=== PATIENT | female | born 1950 | race Caucasian/White ===

== ENCOUNTER 2017-04-26 18:55 | Inpatient (IN) | payer MEDICARE, OTHER ==
[~2017-04-26 18:55] MED LIST: DEPA500T3 PO; DIPH50 PO; DIVA250T PO; ESCI20TA PO; LEVO.15 PO; LORA-474 PO; RISP1 PO; TOLT4 PO; ZOLP10TA3 PO
[2017-04-26 19:21] VITALS: BP 120/95; PULSE 105; RESP 20; TEMP 98.9; O2SAT 96
[2017-04-26 21:52] LABS: AUTOMATED NEUTROPHIL # 9.9 TH/MM3 (1.8-7.7); BASOPHIL # 0.1 TH/MM3 (0-0.2); BASOPHIL % 0.6 % (0.0-2.0); EOSINOPHIL % 0.3 % (0.0-4.0); HEMATOCRIT 39.8 % (35.0-46.0); HEMOGLOBIN 13.1 GM/DL (11.6-15.3); LYMPH % 12.8 % (9.0-44.0); LYMPHOCYTE # 1.6 TH/MM3 (1.0-4.8); MEAN CELL VOLUME 87.1 FL (80.0-100.0); MEAN CORPUSCULAR HEMOGLOBIN 28.7 PG (27.0-34.0); MEAN CORPUSCULAR HGB CONC 32.9 % (32.0-36.0); MEAN PLATELET VOLUME 8.7 FL (7.0-11.0); MONOCYTE # 0.7 TH/MM3 (0-0.9); NEUT % 80.3 % (16.0-70.0); PLATELET COUNT 200 TH/MM3 (150-450); RED BLOOD COUNT 4.56 MIL/MM3 (4.00-5.30); RED CELL DISTRIBUTION WIDTH 14.8 % (11.6-17.2); WHITE BLOOD COUNT 12.3 TH/MM3 (4.0-11.0)
[2017-04-26 22:13] LABS: ALBUMIN 3.7 GM/DL (3.4-5.0); AST (GOT) 17 U/L (15-37); BICARBONATE 22.6 MEQ/L (21.0-32.0); BLOOD UREA NITROGEN 15 MG/DL (7-18); CALCIUM 9.4 MG/DL (8.5-10.1); CHLORIDE 104 MEQ/L (98-107); GLOMERULAR FILTRATION RATE 63 ML/MIN (>89); GLUCOSE,RANDOM 109 MG/DL (74-106); SODIUM (NA) 136 MEQ/L (136-145)
[2017-04-26 22:15] LABS: ALT (GPT) 16 U/L (10-53)
[2017-04-26 22:16] LABS: ALKALINE PHOSPHATASE 76 U/L (45-117); TOTAL BILIRUBIN ADULT 0.4 MG/DL (0.2-1.0); TOTAL PROTEIN 6.9 GM/DL (6.4-8.2)
[2017-04-26] MEDS ORDERED: OLANZapine IM 10 MG VIAL IM ONE (22:30)
[2017-04-26] MEDS ORDERED: SERO200T PO (22:31)
[2017-04-26] MEDS ORDERED: MECL12.574 PO (22:31)
[2017-04-26] MEDS ORDERED: TRAZ100T10 PO (22:31)
[2017-04-26] MEDS ORDERED: OXYC1TAB36 PO (22:31)
[2017-04-26] MEDS ORDERED: ZOLP10TA3 PO (22:31)
[2017-04-26] MEDS ORDERED: CLON1TAB PO (22:31)
[2017-04-26] MEDS ORDERED: ESCI20TA PO (22:31)
[2017-04-26] MEDS ORDERED: ZALE10CA PO (22:31)
[2017-04-26] MEDS ORDERED: ASPI81CH7 CHEW (22:31)
[2017-04-26] MEDS ORDERED: DEPA500T3 PO (22:31)
[2017-04-26] MEDS ORDERED: VITA1000 PO (22:31)
[2017-04-26] MEDS ORDERED: MAGN250T11 PO (22:31)
[2017-04-26] MEDS ORDERED: IBUP-1133 (22:33)
[2017-04-26] MEDS ORDERED: MELA5 PO (22:33)
--- NOTE | 2017-04-26 22:42 | PD ---
HPI Chief Complaint: Psychiatric Symptoms Time Seen by Provider: 22:31 Travel History International Travel<30 days: No Contact w/Intl Traveler<30days: No Traveled to known affect area: No History of Present Illness HPI 66-year-old white female presents emergency department accompanied by her son for psychological evaluation. The patient has history of paranoid schizophrenia. She has not been compliant with her medications. She has not been sleeping. Her 's anniversary of his was back in November. The patient has been decompensating over the last several days. She is becoming more paranoid and having auditory hallucinations. Patient is having conversations with people who were not there. The son states that he is not comfortable staying at home with her. The patient appears acutely psychotic. She does not render any meaningful history. PFSH Past Medical History Medical History: Unable to Obtain Bipolar Disorder: Yes Depression: Yes Cancer: Yes (double mesectomy) Cardiovascular Problems: Yes (Low Blood Pressure ) Diabetes: No Diminished Hearing: No Genitourinary: No Headaches: Yes (Advil and Excederin ) Neurologic: Yes (THIROID PROBLEMS) Psychiatric: Yes Reproductive: No Respiratory: No Seizures: Yes (two in past over 25 years ago when on Thorazine ) Tetanus Vaccination: Unknown ?: Not Tubal Ligation: Yes Past Surgical History Surgical History: Unable to Obtain Social History Alcohol Use: No Tobacco Use: Yes (pack a cig a day ) Substance Use: No Allergies-Medications (Allergen,Severity, Reaction): Coded Allergies: chlorpromazine (Unverified Allergy, Severe, Seizures, 04/26/17) doxycycline (Unverified Allergy, Severe, Seizures, 04/26/17) minocycline (Unverified Allergy, Severe, Seizures, 04/26/17) tigecycline (Unverified Allergy, Severe, Seizures, 04/26/17) Reported Meds & Prescriptions Reported Meds & Active Scripts Active Reported Motrin Pm Caplet (Ibuprofen/Diphenhydramine Cit) 200 Mg-38 Mg Tablet Melatonin 5 Mg Tab 5 Mg PO HS Vitamin D-1000 (Cholecalciferol) 1,000 Unit Tab 1,000 Units PO DAILY Magnesium Oxide 250 Mg Tab 250 Mg PO DAILY Aspirin Children's (Aspirin) 81 Mg Chew 81 Mg CHEW DAILY Escitalopram (Escitalopram Oxalate) 20 Mg Tab 20 Mg PO DAILY Zaleplon 10 Mg Cap 10 Mg PO HS PRN Meclizine (Meclizine HCl) 12.5 Mg Tab 12.5 Mg PO DIRECTED PRN Oxycodone-Acetaminophen 10-325 mg Tab 1 Tab PO Q6H PRN Trazodone (Trazodone HCl) 100 Mg Tablet 100 Mg PO HS Depakote ER (Divalproex Sodium) 500 Mg Jovanny 500 Mg PO DAILY Seroquel (Quetiapine Fumarate) 200 Mg Tab 200 Mg PO HS Zolpidem (Zolpidem Tartrate) 10 Mg Tab 10 Mg PO HS PRN Clonazepam 1 Mg Tab 1 Mg PO BID Review of Systems ROS Limitations: Psychotic Physical Exam Narrative GENERAL: Well-nourished, well-developed patient. SKIN: Warm and dry. HEAD: Normocephalic and atraumatic. EYES: No scleral icterus. No injection or drainage. ENT: No nasal drainage noted. Mucous membranes pink. Airway patent. NECK: Supple, trachea midline. Moves head freely without obvious discomfort. CARDIOVASCULAR: Regular rate and rhythm without murmurs, gallops, or rubs. RESPIRATORY: Breath sounds equal bilaterally. No accessory muscle use. GASTROINTESTINAL: Abdomen soft, non-tender, nondistended. EXTREMITIES: No cyanosis or edema. BACK: Nontender without obvious deformity. No CVA tenderness. NEURO: Patient is alert and oriented. no sensorimotor deficits. Nonfocal. Normal speech. PSYCH: The patient is acutely psychotic. She is responding to internal stimuli. She is having auditory hallucinations. Data Data Last Documented VS Vital Signs Date Time Temp Pulse Resp B/P (MAP) Pulse Ox O2 Delivery O2 Flow Rate FiO2 04/26/17 19:21 98.9 105 20 120/95 (103) 96 Orders Orders Complete Blood Count With Diff (04/26/17 21:36) Comprehensive Metabolic Panel (04/26/17 21:36) Psych Screen (04/26/17 21:36) Thyroid Stimulating Hormone (04/26/17 22:29) Urinalysis - C+S If Indicated (04/26/17 22:29) Drug Screen, Random Urine (04/26/17 22:29) Alcohol (Ethanol) (04/26/17 22:29) Olanzapine Inj (Zyprexa Inj) (04/26/17 22:30) Valproic Acid (Depakene) (04/26/17 22:29) Diphenhydramine Inj (Benadryl Inj) (04/26/17 23:45) Labs Laboratory Tests Test 04/26/17 21:40 White Blood Count 12.3 TH/MM3 Red Blood Count 4.56 MIL/MM3 Hemoglobin 13.1 GM/DL Hematocrit 39.8 % Mean Corpuscular Volume 87.1 FL Mean Corpuscular Hemoglobin 28.7 PG Mean Corpuscular Hemoglobin Concent 32.9 % Red Cell Distribution Width 14.8 % Platelet Count 200 TH/MM3 Mean Platelet Volume 8.7 FL Neutrophils (%) (Auto) 80.3 % Lymphocytes (%) (Auto) 12.8 % Monocytes (%) (Auto) 6.0 % Eosinophils (%) (Auto) 0.3 % Basophils (%) (Auto) 0.6 % Neutrophils # (Auto) 9.9 TH/MM3 Lymphocytes # (Auto) 1.6 TH/MM3 Monocytes # (Auto) 0.7 TH/MM3 Eosinophils # (Auto) 0.0 TH/MM3 Basophils # (Auto) 0.1 TH/MM3 CBC Comment DIFF FINAL Differential Comment Blood Urea Nitrogen 15 MG/DL Creatinine 0.90 MG/DL Random Glucose 109 MG/DL Total Protein 6.9 GM/DL Albumin 3.7 GM/DL Calcium Level 9.4 MG/DL Alkaline Phosphatase 76 U/L Aspartate Amino Transf (AST/SGOT) 17 U/L Alanine Aminotransferase (ALT/SGPT) 16 U/L Total Bilirubin 0.4 MG/DL Sodium Level 136 MEQ/L Potassium Level 3.9 MEQ/L Chloride Level 104 MEQ/L Carbon Dioxide Level 22.6 MEQ/L Anion Gap 9 MEQ/L Estimat Glomerular Filtration Rate 63 ML/MIN Thyroid Stimulating Hormone 3rd Gen 15.700 uIU/ML Valproic Acid (Depakene) Level 49 MCG/ML Ethyl Alcohol Level LESS THAN 3 MG/DL MDM Medical Decision Making Medical Screen Exam Complete: Yes Emergency Medical Condition: Yes Medical Record Reviewed: Yes Interpretation(s) Laboratory Tests Test 04/26/17 21:40 White Blood Count 12.3 TH/MM3 Red Blood Count 4.56 MIL/MM3 Hemoglobin 13.1 GM/DL Hematocrit 39.8 % Mean Corpuscular Volume 87.1 FL Mean Corpuscular Hemoglobin 28.7 PG Mean Corpuscular Hemoglobin Concent 32.9 % Red Cell Distribution Width 14.8 % Platelet Count 200 TH/MM3 Mean Platelet Volume 8.7 FL Neutrophils (%) (Auto) 80.3 % Lymphocytes (%) (Auto) 12.8 % Monocytes (%) (Auto) 6.0 % Eosinophils (%) (Auto) 0.3 % Basophils (%) (Auto) 0.6 % Neutrophils # (Auto) 9.9 TH/MM3 Lymphocytes # (Auto) 1.6 TH/MM3 Monocytes # (Auto) 0.7 TH/MM3 Eosinophils # (Auto) 0.0 TH/MM3 Basophils # (Auto) 0.1 TH/MM3 CBC Comment DIFF FINAL Differential Comment Blood Urea Nitrogen 15 MG/DL Creatinine 0.90 MG/DL Random Glucose 109 MG/DL Total Protein 6.9 GM/DL Albumin 3.7 GM/DL Calcium Level 9.4 MG/DL Alkaline Phosphatase 76 U/L Aspartate Amino Transf (AST/SGOT) 17 U/L Alanine Aminotransferase (ALT/SGPT) 16 U/L Total Bilirubin 0.4 MG/DL Sodium Level 136 MEQ/L Potassium Level 3.9 MEQ/L Chloride Level 104 MEQ/L Carbon Dioxide Level 22.6 MEQ/L Anion Gap 9 MEQ/L Estimat Glomerular Filtration Rate 63 ML/MIN Thyroid Stimulating Hormone 3rd Gen 15.700 uIU/ML Valproic Acid (Depakene) Level 49 MCG/ML Ethyl Alcohol Level LESS THAN 3 MG/DL Differential Diagnosis MDM: High Differential diagnoses: Schizophrenia, schizoaffective disorder, bipolar, anxiety, depression, adjustment reaction, mood disorder NOS, ODD, depressive disorder NOS, dementia, dementia with agitation, psychosis NOS, substance induced mood disorder, DMDD, Asperger syndrome, infection,electrolyte abnormality, malingering. Narrative Course Mental health screening discussed with the patient. Psychiatric screen ordered. I have initiated Crowe act to ensure the patient's safety. She is given Zyprexa 10 mg IM. Benadryl 50 mg IM. This is medical clearance for psychiatric admission, paranoid schizophrenia, hypothyroidism Diagnosis Primary Impression: Medical clearance for psychiatric admission Additional Impressions: Schizophrenia, paranoid, chronic with acute exacerbation Hypothyroidism Condition: Stable Oscar Godoy Apr 26, 2017 22:42
[2017-04-26] MEDS ORDERED: diphenhydrAMINE HCL 50 MG/ML VIAL IM ONE (23:45)
[2017-04-27 02:27] LABS: BILIRUBIN, URINE NEG (NEG); BLOOD, URINE TRACE (NEG); GLUCOSE,URINE NEG (NEG); KETONE, URINE TRACE mg/dL (NEG); MUCUS URINE FEW /lpf (OCC); NITRITE,URINE NEG (NEG); PH, URINE 7.5 (5.0-8.5); URINE COLOR YELLOW (YELLW/STRAW); URINE LEUKOCYTE ESTERASE NEG (NEG)
[2017-04-27 03:53] VITALS: BP 125/93; PULSE 94; RESP 17; O2SAT 96
[2017-04-27] MEDS ORDERED: diphenhydrAMINE HCL 50 MG CAP PO PRN ×2 (04:00→10:00)
[2017-04-27] MEDS ORDERED: diphenhydrAMINE HCL 50 MG CAP - HS PRN PO (04:00)
[2017-04-27] MEDS ORDERED: diphenhydrAMINE HCL 50 MG/ML VIAL - HS PRN IM (04:00)
[2017-04-27] MEDS ORDERED: LORazepam 0.5 MG TAB age > 65 yrs PO PRN (04:00)
[2017-04-27] MEDS ORDERED: MAGNESIUM HYDROXIDE SUSP 30 ML CUP PO PRN (04:00)
[2017-04-27] MEDS ORDERED: LORazepam 2 MG/ML VIAL - age > 65 yrs IM PRN (04:00)
[2017-04-27] MEDS ORDERED: diphenhydrAMINE HCL 50 MG/ML VIAL IM PRN (04:00)
[2017-04-27 04:10] VITALS: BP 131/63; PULSE 104; RESP 18
[2017-04-27] MEDS ORDERED: OLANZapine IM 10 MG VIAL IM ONE ×4 (05:00→17:15)
[2017-04-27] MEDS: NICOTINE 21 MG/24 HR PATCH T-DERMAL SCH (09:00)
[2017-04-27] MEDS ORDERED: LORazepam 2 MG/ML VIAL IM ONE ×2 (09:00→22:45)
[2017-04-27] MEDS: DIVALPROEX SODIUM E.R. 500 MG TAB PO SCH (10:00)
--- NOTE | 2017-04-27 13:14 | HHI.HP ---
Provisional Diagnosis Admission Date Apr 27, 2017 at 03:41 [place] I. Schizophrenia chronic paranoid type with acute psychotic exacerbation f 20.0 Certification of Person's Competence To Provide Express and Informed Consent I have personally examined Maru Pickard , a person being served at [facility] on, Apr 27, 2017 13:03. Express and informed consent means consent voluntarily given in writing, by a competent person, after sufficient explanation and disclosure of the subject matter involved to enable the person to make a knowing and willful decision without any element of force, fraud, deceit, duress, or other form of constraint or coercion. This person is 18 years of age or older, is not now known to be incompetent to consent to treatment with a guardian advocate, and does not have a health care surrogate or proxy currently making medical treatment decisions. I have found this person to be one of the following: [] Competent to provide express and informed consent, as defined above, for voluntary admission to this facility and is competent to provide express and informed consent for treatment. He/she has the consistent capacity to make well reasoned, willful, and knowing decisions concerning his or her medical or mental health treatment. The person fully and consistently understands the purpose of the admission for examination/placement and is fully capable of personally exercising all rights assured under [place]xxx] Incompetent to provide express and informed consent to voluntary admission , and this is incompetent to provide express and informed consent to treatment. The person must be transferred to involuntary status and a petition for a guardian advocate filed with the Circuit Court. [] Refusing to provide express and informed consent to voluntary admission but is competent to provide express and informed consent for treatment. The person must be discharged or transferred to involuntary status. Form shall be completed within 24 hours of a person's arrival at the receiving facility and filed in the clinical record of each person: 1. Admitted on a voluntary basis 2. Permitted to provide express and informed consent to his/her own treatment 3. Allowed to transfer from involuntary to voluntary status 4. Prior to permitting a person to consent to his or her own treatment after having been previously found incompetent to consent to treatment. History of Present Illness Capacity: Lacks Capacity HPI Patient is a 66-year-old white female well-known post multiple prior contacts comes here under a Crowe act signed by Rc Matamoros and cosigned by : Dated 04/26 and 2 hrs. that document reviewed essentially stating patient hasn't slept past 3 days having auditory hallucinations patient actively bizarre and psychotic patient seen screened in the ED Depakote blood level XLIX urine toxicology negative blood alcohol level negative. Patient did need ETO's in the emergency department prior to transfer to 2500. Patient seen by me on 2500 patient in her room patient seen with nurse. Patient sitting in bed markedly arouse distractible screaming making nonsensical statements pointing to the ground pointing towards self pointing to her feet. Patient showing no reaction to my presence or to any questions I proposed to her. Though patient's behavior is so out of control they wouldn't ETO of Zyprexa 5 mg Ativan 1 mg Benadryl 25 mg complement the prior Zyprexa injections that have been given. No further information has been available except the fact that the patient is and lives with her son. Chart has been reviewed. We'll attempt to reach patient's son to get further information. It seems patient showing deterioration noncompliance medication increased psychosis over the past week or so. It appears is been no alcohol or other drugs involved with this lady. Review of Systems ROS Limitations: Clinical Condition, Altered Mental Status Past Psych History Psychological trauma history " Unknown at This time long history mental illness Violence risk - others (6 mos) Low Violence risk - self (6 mos) [id number] psychosis Substance Abuse History Drugs/Alcohol past 12 months Denies Past Family Social History Coded Allergies: chlorpromazine (Unverified Allergy, Severe, Seizures, 04/26/17) doxycycline (Unverified Allergy, Severe, Seizures, 04/26/17) minocycline (Unverified Allergy, Severe, Seizures, 04/26/17) tigecycline (Unverified Allergy, Severe, Seizures, 04/26/17) Reported Medications Ibuprofen/Diphenhydramine Cit (Motrin Pm Caplet) 200 Mg-38 Mg Tablet 04/26/17 Melatonin (Melatonin) 5 Mg Tab, 5 MG PO HS for Provide Good Sleep, TAB 0 Refills 04/26/17 Cholecalciferol (Vitamin D-1000) 1,000 Unit Tab, 1000 UNITS PO DAILY for Nutritional Supplement, #1 BOTTLE 0 Refills 04/26/17 Magnesium Oxide (Magnesium Oxide) 250 Mg Tab, 250 MG PO DAILY, TAB 0 Refills 04/26/17 Aspirin (Aspirin Children's) 81 Mg Chew, 81 MG CHEW DAILY, TAB 0 Refills 04/26/17 Escitalopram (Escitalopram) 20 Mg Tab, 20 MG PO DAILY, #30 TAB 0 Refills 04/26/17 Zaleplon (Zaleplon) 10 Mg Cap, 10 MG PO HS Y for INSOMNIA, CAP 0 Refills 04/26/17 Meclizine (Meclizine) 12.5 Mg Tab, 12.5 MG PO DIRECTED Y for VERTIGO, TAB 0 Refills 04/26/17 Oxycodone-Acetaminophen (Oxycodone-Acetaminophen) 10-325 mg Tab, 1 TAB PO Q6H Y for PAIN, TAB 0 Refills 04/26/17 Trazodone (Trazodone) 100 Mg Tablet, 100 MG PO HS for Control Depression, #30 TAB 0 Refills 04/26/17 Divalproex ER (Depakote ER) 500 Mg Jovanny, 500 MG PO DAILY for Control Seizures, #30 TAB 0 Refills 04/26/17 Quetiapine (Seroquel) 200 Mg Tab, 200 MG PO HS, #30 TAB 0 Refills 04/26/17 Zolpidem (Zolpidem) 10 Mg Tab, 10 MG PO HS Y for INSOMNIA, TAB 0 Refills 04/26/17 Clonazepam (Clonazepam) 1 Mg Tab, 1 MG PO BID, #60 TAB 0 Refills 04/26/17 Current Medications Medications (Trade) Dose Ordered Sig/Minor Route Start Time Stop Time Status Last Admin (Benadryl) 50 mg HS PRN PO 04/27/17 04:00 (Desyrel) 50 mg HS PRN PO 04/27/17 04:00 (Tylenol) 650 mg Q4H PRN PO 04/27/17 04:00 (Milk Of Magnesia Liq) 30 ml DAILY PRN PO 04/27/17 04:00 (Mag-Al Plus Susp Liq) 30 ml Q6H PRN PO 04/27/17 04:00 (Habitrol 21 Mg Patch.24 Hr) 1 patch DAILY T-DERMAL 04/27/17 09:00 Miscellaneous Information 1 HS T-DERMAL 3/14/18 21:00 (Atarax) 50 mg Q6H PRN PO 04/27/17 10:00 (Aspirin Chew) 81 mg DAILY CHEW 04/28/17 09:00 (Vitamin D3) 1,000 units DAILY PO 04/28/17 09:00 (Depakote Er) 500 mg DAILY PO 04/27/17 10:00 (Lexapro) 20 mg DAILY PO 04/28/17 09:00 (SEROquel) 200 mg HS PO 04/27/17 21:00 Patient Own Medication PT OWN MED: MAGNES... DAILY PO 04/28/17 09:00 Future Hold Family Psych History Unknown at this time will son appears supportive Social History Patient lives with son patient is Patient's Strengths (min. 2) Patient supportive family, able [facility] Physical Exam Patient medically cleared ED at the present time patient sitting is somewhat aroused state on her bed she is in no acute distress, she is in no respiratory distress, no complaints of abdominal pain the patient is nonverbal. Patient moving all 4 extremities without difficulty Vital Signs Vital Signs Date Time Temp Pulse Resp B/P (MAP) Pulse Ox O2 Delivery O2 Flow Rate FiO2 04/27/17 04:22 04/27/17 04:10 104 18 04/27/17 03:53 96 Room Air 04/26/17 19:21 98.9 Lab Results Test 04/26/17 21:40 04/27/17 02:11 White Blood Count 12.3 TH/MM3 Red Blood Count 4.56 MIL/MM3 Hemoglobin 13.1 GM/DL Hematocrit 39.8 % Mean Corpuscular Volume 87.1 FL Mean Corpuscular Hemoglobin 28.7 PG Mean Corpuscular Hemoglobin Concent 32.9 % Red Cell Distribution Width 14.8 % Platelet Count 200 TH/MM3 Mean Platelet Volume 8.7 FL Neutrophils (%) (Auto) 80.3 % Lymphocytes (%) (Auto) 12.8 % Monocytes (%) (Auto) 6.0 % Eosinophils (%) (Auto) 0.3 % Basophils (%) (Auto) 0.6 % Neutrophils # (Auto) 9.9 TH/MM3 Lymphocytes # (Auto) 1.6 TH/MM3 Monocytes # (Auto) 0.7 TH/MM3 Eosinophils # (Auto) 0.0 TH/MM3 Basophils # (Auto) 0.1 TH/MM3 CBC Comment DIFF FINAL Differential Comment Blood Urea Nitrogen 15 MG/DL Creatinine 0.90 MG/DL Random Glucose 109 MG/DL Total Protein 6.9 GM/DL Albumin 3.7 GM/DL Calcium Level 9.4 MG/DL Alkaline Phosphatase 76 U/L Aspartate Amino Transf (AST/SGOT) 17 U/L Alanine Aminotransferase (ALT/SGPT) 16 U/L Total Bilirubin 0.4 MG/DL Sodium Level 136 MEQ/L Potassium Level 3.9 MEQ/L Chloride Level 104 MEQ/L Carbon Dioxide Level 22.6 MEQ/L Anion Gap 9 MEQ/L Estimat Glomerular Filtration Rate 63 ML/MIN Thyroid Stimulating Hormone 3rd Gen 15.700 uIU/ML Valproic Acid (Depakene) Level 49 MCG/ML Ethyl Alcohol Level LESS THAN 3 MG/DL Urine Color YELLOW Urine Turbidity CLEAR Urine pH 7.5 Urine Specific [place] 1.010 Urine Protein NEG mg/dL Urine Glucose (UA) NEG mg/dL Urine Ketones TRACE mg/dL Urine Occult Blood TRACE Urine Nitrite NEG Urine Bilirubin NEG Urine Urobilinogen LESS THAN 2.0 MG/DL Urine Leukocyte Esterase NEG Urine RBC 3 /hpf Urine WBC 1 /hpf Urine Mucus FEW /lpf Microscopic Urinalysis Comment CULT NOT INDICATED Urine Opiates Screen NEG Urine Barbiturates Screen NEG Urine Amphetamines Screen NEG Urine Benzodiazepines Screen NEG Urine Cocaine Screen NEG Urine Cannabinoids Screen NEG Mental Status Examination Appearance: Disheveled Consciousness: Alert Motor Activity: Other (unable to ascertain patient sitting on her bed) Speech: Other (patient making nonsensical statements) Language: Other (nonsensical) Fund of Knowledge: Poor Attention and Concentration: Easily Distracted Memory: Impaired Mood: Angry, Anxious, Irritable Affect: Other (increase range and intensity) Thought Process & Associations: Disorganized Thought Content: Other (significantly disorganized) Hallucination Type: Auditory, Visual Delusion Type: Bizarre Suicidal Ideation: No Suicidal Plan: No Suicidal Intention: No Homicidal Ideation: No Homicidal Plan: No Homicidal Intention: No Insight: Poor Judgment: Poor Assessment & Plan Problem List: (1) Schizophrenia, paranoid, chronic with acute exacerbation ICD Codes: F20.0 - Paranoid schizophrenia Status: Acute Assessment & Plan Estimated LOS: Seth Rice MD Apr 27, 2017 13:14
--- NOTE | 2017-04-27 14:22 | PD.CONS ---
[facility] Reason for Consult Medical management Primary Care Physician Unknown Diagnoses: History of Present Illness Due to acute paranoia/psychosis, patient is unable to provide any history at this time during my exam, on the history is obtained from ED report and chart review below: "66-year-old white female presents emergency department accompanied by her son for psychological evaluation. The patient has history of paranoid schizophrenia. She has not been compliant with her medications. She has not been sleeping. Her 's anniversary of his was back in November. The patient has been decompensating over the last several days. She is becoming more paranoid and having auditory hallucinations. Patient is having conversations with people who were not there. The son states that he is not comfortable staying at home with her. The patient appears acutely psychotic. She does not render any meaningful history." Review of Systems ROS Limitations: Psychotic Past Family Social History Allergies: Coded Allergies: chlorpromazine (Unverified Allergy, Severe, Seizures, 04/26/17) doxycycline (Unverified Allergy, Severe, Seizures, 04/26/17) minocycline (Unverified Allergy, Severe, Seizures, 04/26/17) tigecycline (Unverified Allergy, Severe, Seizures, 04/26/17) Past Medical History Patient is unable to provide any history, however this is obtained from EMR Bipolar Disorder: Yes Cardiovascular Problems: Yes (Low Blood Pressure ) Diminished Hearing: No Genitourinary: No Headaches: Yes (Advil and Excederin ) Neurologic: Yes (THIROID PROBLEMS) Psychiatric: Yes Seizures: Yes (two in past over 25 years ago when on Thorazine ) Tubal Ligation: Yes Past Surgical History Per EMR review Double mastectomy Reported Medications Motrin Pm Caplet (Ibuprofen/Diphenhydramine Cit) 200 Mg-38 Mg Tablet Melatonin 5 Mg Tab 5 Mg PO HS Vitamin D-1000 (Cholecalciferol) 1,000 Unit Tab 1,000 Units PO DAILY Magnesium Oxide 250 Mg Tab 250 Mg PO DAILY Aspirin Children's (Aspirin) 81 Mg Chew 81 Mg CHEW DAILY Escitalopram (Escitalopram Oxalate) 20 Mg Tab 20 Mg PO DAILY Zaleplon 10 Mg Cap 10 Mg PO HS PRN Meclizine (Meclizine HCl) 12.5 Mg Tab 12.5 Mg PO DIRECTED PRN Oxycodone-Acetaminophen 10-325 mg Tab 1 Tab PO Q6H PRN Trazodone (Trazodone HCl) 100 Mg Tablet 100 Mg PO HS Depakote ER (Divalproex Sodium) 500 Mg Jovanny 500 Mg PO DAILY Seroquel (Quetiapine Fumarate) 200 Mg Tab 200 Mg PO HS Zolpidem (Zolpidem Tartrate) 10 Mg Tab 10 Mg PO HS PRN Clonazepam 1 Mg Tab 1 Mg PO BID Family History Unable to obtain Social History Unable to obtain Physical Exam Vital Signs Vital Signs Date Time Temp Pulse Resp B/P (MAP) Pulse Ox O2 Delivery O2 Flow Rate FiO2 04/27/17 04:22 04/27/17 04:10 104 18 131/63 (85) 04/27/17 03:53 94 17 125/93 (104) 96 Room Air 04/26/17 19:21 98.9 105 20 120/95 (103) 96 Physical Exam GENERAL: Disheveled elderly patient SKIN: No rashes, ecchymoses or lesions. Cool and dry. HEAD: Atraumatic. Normocephalic. No temporal or scalp tenderness. EYES: Pupils equal round and reactive. Extraocular motions intact. No scleral icterus. No injection or drainage. ENT: Nose without bleeding, purulent drainage or septal hematoma. Throat without erythema, tonsillar hypertrophy or exudate. Uvula midline. Airway patent. NECK: Trachea midline. No JVD or lymphadenopathy. Supple, nontender, no meningeal signs. CARDIOVASCULAR: Regular rate and rhythm without murmurs, gallops, or rubs. RESPIRATORY: Clear to auscultation. Breath sounds equal bilaterally. No wheezes , rales, or rhonchi. GASTROINTESTINAL: Abdomen soft, non-tender, nondistended. No hepato-splenomegaly , or palpable masses. No guarding. MUSCULOSKELETAL: Extremities without clubbing, cyanosis, or edema. No joint tenderness, effusion, or edema noted. No calf tenderness. Negative Homans sign bilaterally. NEUROLOGICAL: Awake and alert. Cranial nerves II through XII intact. Motor and sensory grossly within normal limits. Five out of 5 muscle strength in all muscle groups. Normal speech. Laboratory Laboratory Tests Test 04/26/17 21:40 04/27/17 02:11 White Blood Count 12.3 Red Blood Count 4.56 Hemoglobin 13.1 Hematocrit 39.8 Mean Corpuscular Volume 87.1 Mean Corpuscular Hemoglobin 28.7 Mean Corpuscular Hemoglobin Concent 32.9 Red Cell Distribution Width 14.8 Platelet Count 200 Mean Platelet Volume 8.7 Neutrophils (%) (Auto) 80.3 Lymphocytes (%) (Auto) 12.8 Monocytes (%) (Auto) 6.0 Eosinophils (%) (Auto) 0.3 Basophils (%) (Auto) 0.6 Neutrophils # (Auto) 9.9 Lymphocytes # (Auto) 1.6 Monocytes # (Auto) 0.7 Eosinophils # (Auto) 0.0 Basophils # (Auto) 0.1 CBC Comment DIFF FINAL Differential Comment Blood Urea Nitrogen 15 Creatinine 0.90 Random Glucose 109 Total Protein 6.9 Albumin 3.7 Calcium Level 9.4 Alkaline Phosphatase 76 Aspartate Amino Transf (AST/SGOT) 17 Alanine Aminotransferase (ALT/SGPT) 16 Total Bilirubin 0.4 Sodium Level 136 Potassium Level 3.9 Chloride Level 104 Carbon Dioxide Level 22.6 Anion Gap 9 Estimat Glomerular Filtration Rate 63 Free Thyroxine 0.77 Thyroid Stimulating Hormone 3rd Gen 15.700 Valproic Acid (Depakene) Level 49 Ethyl Alcohol Level LESS THAN 3 Urine Color YELLOW Urine Turbidity CLEAR Urine pH 7.5 Urine Specific [place] 1.010 Urine Protein NEG Urine Glucose (UA) NEG Urine Ketones TRACE Urine Occult Blood TRACE Urine Nitrite NEG Urine Bilirubin NEG Urine Urobilinogen LESS THAN 2.0 Urine Leukocyte Esterase NEG Urine RBC 3 Urine WBC 1 Urine Mucus FEW Microscopic Urinalysis Comment CULT NOT INDICATED Urine Opiates Screen NEG Urine Barbiturates Screen NEG Urine Amphetamines Screen NEG Urine Benzodiazepines Screen NEG Urine Cocaine Screen NEG Urine Cannabinoids Screen NEG Result Diagram: 04/26/[id number]/[id number]/172139 Assessment and Plan Assessment and Plan 66-year-old female with History of schizophrenia with acute psychosis and paranoia Management per psychiatry History of anxiety/depression Management per psychiatry Leukocytosis UA negative, check checks x-ray and treat accordingly Subclinical hyperthyroidism Start Tapazole 5mg Qday Recheck TSH and free T4 in 4-6 weeks DVT prophylaxis: Encourage ambulation Mihir Kebede MD Apr 27, 2017 14:22
[2017-04-27] MEDS ORDERED: diphenhydrAMINE HCL 50 MG/ML VIAL ONE (16:57)
[2017-04-27] MEDS ORDERED: diphenhydrAMINE HCL 50 MG/ML VIAL IM ONE (17:15)
[2017-04-27] MEDS ORDERED: LORazepam 2 MG/ML VIAL IV ONE (17:15)
[2017-04-27] MEDS: QUEtiapine FUMARATE 200 MG TAB PO SCH (20:46)
[2017-04-27] MEDS: REMOVE OLD NICOTINE PATCH T-DERMAL SCH (21:00)
[2017-04-27] MEDS: traZODone HCL 50 MG TAB PO PRN (22:18)
[2017-04-27] MEDS ORDERED: ZIPRASIDONE MESYLATE 20 MG VIAL IM ONE (22:45)
[2017-04-28 04:42] VITALS: BP 142/72; PULSE 87; RESP 18; TEMP 98.4; O2SAT 92
[2017-04-28] MEDS ORDERED: LEVOTHYROXINE SODIUM 75 MCG TAB PO SCH (06:00)
[2017-04-28 07:22] LABS: AUTOMATED NEUTROPHIL # 3.6 TH/MM3 (1.8-7.7); BASOPHIL # 0.1 TH/MM3 (0-0.2); BASOPHIL % 1.4 % (0.0-2.0); EOSINOPHIL # 0.2 TH/MM3 (0-0.4); EOSINOPHIL % 2.6 % (0.0-4.0); HEMATOCRIT 35.1 % (35.0-46.0); HEMOGLOBIN 12.1 GM/DL (11.6-15.3); LYMPH % 33.1 % (9.0-44.0); LYMPHOCYTE # 2.3 TH/MM3 (1.0-4.8); MEAN CELL VOLUME 86.2 FL (80.0-100.0); MEAN CORPUSCULAR HEMOGLOBIN 29.8 PG (27.0-34.0); MEAN CORPUSCULAR HGB CONC 34.6 % (32.0-36.0); MEAN PLATELET VOLUME 8.5 FL (7.0-11.0); MONO % 10.7 % (0.0-8.0); MONOCYTE # 0.7 TH/MM3 (0-0.9); NEUT % 52.2 % (16.0-70.0); PLATELET COUNT 151 TH/MM3 (150-450); RED BLOOD COUNT 4.07 MIL/MM3 (4.00-5.30); RED CELL DISTRIBUTION WIDTH 15.1 % (11.6-17.2); WHITE BLOOD COUNT 6.9 TH/MM3 (4.0-11.0)
[2017-04-28 07:42] LABS: BICARBONATE 24.9 MEQ/L (21.0-32.0); BLOOD UREA NITROGEN 21 MG/DL (7-18); CALCIUM 8.9 MG/DL (8.5-10.1); CHLORIDE 108 MEQ/L (98-107); CREATININE 0.81 MG/DL (0.50-1.00); GLOMERULAR FILTRATION RATE 71 ML/MIN (>89); GLUCOSE,RANDOM 94 MG/DL (74-106); SODIUM (NA) 142 MEQ/L (136-145)
[2017-04-28 07:44] LABS: CHOLESTEROL 180 MG/DL (120-200)
[2017-04-28 07:53] LABS: CHOLESTEROL/ HDL RATIO 2.73 RATIO; HDL CHOLESTEROL 65.7 MG/DL (40.0-60.0); LDL CHOLESTEROL 95 MG/DL (0-99); TRIGLYCERIDES 99 MG/DL (42-150)
[2017-04-28] MEDS: DIVALPROEX SODIUM E.R. 500 MG TAB PO SCH (08:34)
[2017-04-28] MEDS: CHOLECALCIFEROL (VIT D3) 1000 UNIT TAB PO SCH (08:34)
[2017-04-28] MEDS: ESCITALOPRAM OXALATE 20 MG TAB PO SCH (08:34)
[2017-04-28] MEDS: ASPIRIN 81 MG CHEW TAB CHEW SCH (08:35)
[2017-04-28] MEDS: NICOTINE 21 MG/24 HR PATCH T-DERMAL SCH (08:42)
[2017-04-28] MEDS ORDERED: MAGNESIUM OXIDE 250 MG PO SCH (09:00)
[2017-04-28] MEDS ORDERED: [UNRECOGNIZED DRUG - OTHER] PO SCH (09:00)
[2017-04-28] MEDS ORDERED: METHIMAZOLE 5 MG TAB PO SCH (09:00)
[2017-04-28] MEDS ORDERED: POTASSIUM CHLORIDE 20 MEQ CONTROLLED RELEASE TAB PO ONE (12:00)
--- NOTE | 2017-04-28 12:06 | PD.PSY.CON ---
Provisional Diagnosis Admission Date Apr 27, 2017 at 03:41 [place]. 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 Rice Reason for Consult Second opinion Primary Care Physician Unknown HPI Patient is a 66-year-old white female well-known post multiple prior contacts comes here under a Crowe act signed by Rc Matamoros and cosigned by : Dated 04/26 and 2212 hrs. that document reviewed essentially stating patient hasn't slept past 3 days having auditory hallucinations patient actively bizarre and psychotic patient seen screened in the ED Depakote blood level XLIX urine toxicology negative blood alcohol level negative. Patient did need ETO's in the emergency department prior to transfer to 2500. Patient seen by me on 2500 patient in her room patient seen with nurse. Patient sitting in bed markedly arouse distractible screaming making nonsensical statements pointing to the ground pointing towards self pointing to her feet. Patient showing no reaction to my presence or to any questions I proposed to her. Though patient's behavior is so out of control they wouldn't ETO of Zyprexa 5 mg Ativan 1 mg Benadryl 25 mg complement the prior Zyprexa injections that have been given. No further information has been available except the fact that the patient is and lives with her son. Chart has been reviewed. We'll attempt to reach patient's son to get further information. It seems patient showing deterioration noncompliance medication increased psychosis over the past week or so. It appears is been no alcohol or other drugs involved with this lady. The patient is a 66-year-old woman, multiple psychiatric admissions, history of schizophrenia, the patient was brought to the hospital again on the Crowe act due to psychotic decompensation, lack of sleep, disruptive behavior and auditory hallucinations. Patient was consulted to me for second opinion. As per conversation with nurse in charge, the patient has been increasingly aggressive, agitated, disorganized, needing multiple ETO's in the last 12 hours. ON My evaluation today the patient is deeply asleep, very sedated, unable to provide any meaningful information for the second opinion. But, based in documentation, alligation of the nurses, collateral information of technicians in Unit and also conversation with Dr. Rice I understand that the patient needs to continue psychiatric hospitalization for stabilization Past Family Social History Coded Allergies: chlorpromazine (Unverified Allergy, Severe, Seizures, 04/26/17) doxycycline (Unverified Allergy, Severe, Seizures, 04/26/17) minocycline (Unverified Allergy, Severe, Seizures, 04/26/17) tigecycline (Unverified Allergy, Severe, Seizures, 04/26/17) Reported Medications Ibuprofen/Diphenhydramine Cit (Motrin Pm Caplet) 200 Mg-38 Mg Tablet 04/26/17 Melatonin (Melatonin) 5 Mg Tab, 5 MG PO HS for Provide Good Sleep, TAB 0 Refills 04/26/17 Cholecalciferol (Vitamin D-1000) 1,000 Unit Tab, 1000 UNITS PO DAILY for Nutritional Supplement, #1 BOTTLE 0 Refills 04/26/17 Magnesium Oxide (Magnesium Oxide) 250 Mg Tab, 250 MG PO DAILY, TAB 0 Refills 04/26/17 Aspirin (Aspirin Children's) 81 Mg Chew, 81 MG CHEW DAILY, TAB 0 Refills 04/26/17 Escitalopram (Escitalopram) 20 Mg Tab, 20 MG PO DAILY, #30 TAB 0 Refills 04/26/17 Zaleplon (Zaleplon) 10 Mg Cap, 10 MG PO HS Y for INSOMNIA, CAP 0 Refills 04/26/17 Meclizine (Meclizine) 12.5 Mg Tab, 12.5 MG PO DIRECTED Y for VERTIGO, TAB 0 Refills 04/26/17 Oxycodone-Acetaminophen (Oxycodone-Acetaminophen) 10-325 mg Tab, 1 TAB PO Q6H Y for PAIN, TAB 0 Refills 04/26/17 Trazodone (Trazodone) 100 Mg Tablet, 100 MG PO HS for Control Depression, #30 TAB 0 Refills 04/26/17 Divalproex ER (Depakote ER) 500 Mg Jovanny, 500 MG PO DAILY for Control Seizures, #30 TAB 0 Refills 04/26/17 Quetiapine (Seroquel) 200 Mg Tab, 200 MG PO HS, #30 TAB 0 Refills 04/26/17 Zolpidem (Zolpidem) 10 Mg Tab, 10 MG PO HS Y for INSOMNIA, TAB 0 Refills 04/26/17 Clonazepam (Clonazepam) 1 Mg Tab, 1 MG PO BID, #60 TAB 0 Refills 04/26/17 Current Medications Medications (Trade) Dose Ordered Sig/Minor Route Start Time Stop Time Status Last Admin (Benadryl) 50 mg HS PRN PO 04/27/17 04:00 04/27/17 22:21 (Desyrel) 50 mg HS PRN PO 04/27/17 04:00 04/27/17 22:18 (Tylenol) 650 mg Q4H PRN PO 04/27/17 04:00 (Milk Of Magnesia Liq) 30 ml DAILY PRN PO 04/27/17 04:00 (Mag-Al Plus Susp Liq) 30 ml Q6H PRN PO 04/27/17 04:00 (Habitrol 21 Mg Patch.24 Hr) 1 patch DAILY T-DERMAL 04/27/17 09:00 Miscellaneous Information 1 HS T-DERMAL 04/27/17 21:00 (Atarax) 50 mg Q6H PRN PO 04/27/17 10:00 (Aspirin Chew) 81 mg DAILY CHEW 04/28/17 09:00 04/28/17 08:35 (Vitamin D3) 1,000 units DAILY PO 04/28/17 09:00 04/28/17 08:34 (Depakote Er) 500 mg DAILY PO 04/27/17 10:00 04/28/17 08:34 (Lexapro) 20 mg DAILY PO 04/28/17 09:00 04/28/17 08:34 (SEROquel) 200 mg HS PO 04/27/17 21:00 04/27/17 20:46 Patient Own Medication PT OWN MED: MAGNES... DAILY PO 04/28/17 09:00 Future Hold (KCl) 20 meq ONCE ONCE PO 04/28/17 12:00 04/28/17 12:01 UNV Patient's Strengths (min. 2) Patient supportive family, able axis health care Physical Exam Vital Signs Vital Signs Date Time Temp Pulse Resp B/P (MAP) Pulse Ox O2 Delivery O2 Flow Rate FiO2 04/28/17 04:42 98.4 87 18 142/72 (95) 92 04/27/17 03:53 Room Air Lab Results Test 04/28/17 06:32 04/28/17 06:52 White Blood Count 6.9 TH/MM3 Red Blood Count 4.07 MIL/MM3 Hemoglobin 12.1 GM/DL Hematocrit 35.1 % Mean Corpuscular Volume 86.2 FL Mean Corpuscular Hemoglobin 29.8 PG Mean Corpuscular Hemoglobin Concent 34.6 % Red Cell Distribution Width 15.1 % Platelet Count 151 TH/MM3 Mean Platelet Volume 8.5 FL Neutrophils (%) (Auto) 52.2 % Lymphocytes (%) (Auto) 33.1 % Monocytes (%) (Auto) 10.7 % Eosinophils (%) (Auto) 2.6 % Basophils (%) (Auto) 1.4 % Neutrophils # (Auto) 3.6 TH/MM3 Lymphocytes # (Auto) 2.3 TH/MM3 Monocytes # (Auto) 0.7 TH/MM3 Eosinophils # (Auto) 0.2 TH/MM3 Basophils # (Auto) 0.1 TH/MM3 CBC Comment DIFF FINAL Differential Comment Blood Urea Nitrogen 21 MG/DL Creatinine 0.81 MG/DL Random Glucose 94 MG/DL Calcium Level 8.9 MG/DL Sodium Level 142 MEQ/L Potassium Level 3.4 MEQ/L Chloride Level 108 MEQ/L Carbon Dioxide Level 24.9 MEQ/L Anion Gap 9 MEQ/L Estimat Glomerular Filtration Rate 71 ML/MIN Triglycerides Level 99 MG/DL Cholesterol Level 180 MG/DL LDL Cholesterol 95 MG/DL HDL Cholesterol 65.7 MG/DL Cholesterol/HDL Ratio 2.73 RATIO Free Thyroxine 0.60 NG/DL Thyroid Stimulating Hormone 3rd Gen 12.700 uIU/ML Mental Status Examination Appearance: Disheveled Consciousness: Alert Motor Activity: Other (unable to ascertain patient sitting on her bed) Speech: Other (patient making nonsensical statements) Language: Other (nonsensical) Fund of Knowledge: Poor Attention and Concentration: Easily Distracted Memory: Impaired Mood: Angry, Anxious, Irritable Affect: Other (increase range and intensity) Thought Process & Associations: Disorganized Thought Content: Other (significantly disorganized) Hallucination Type: Auditory, Visual Delusion Type: Bizarre Suicidal Ideation: No Suicidal Plan: No Suicidal Intention: No Homicidal Ideation: No Homicidal Plan: No Homicidal Intention: No Insight: Poor Judgment: Poor Assessment & Plan Problem List: (1) Schizophrenia, paranoid, chronic with acute exacerbation ICD Codes: F20.0 - Paranoid schizophrenia Status: Acute Assessment & Plan: I have seen and examined this patient, reviewed documentation, discussed the patient with Dr. Rice and staff members, I agree and concur with assessment and plan. Assessment & Plan Estimated LOS: days Luis Enrique Peguero MD Apr 28, 2017 12:06
--- NOTE | 2017-04-28 12:58 | HHI.PYPN ---
Subjective Remarks Patient seen in day room with nurse Quyen, chart reviewed, patient discussed with nurse. Patient showing much less activation arousable and disorganization today she still shows some anxiety and tremulousness but it is softer. She is now able to respond fairly appropriately to questions, complains of some headache at this time. Does not remember any other details from yesterday. However she did sleep well last night. At this time we will order Geodon 40 mg twice a day scheduled to start at this time. Review of Systems Except as stated in HPI: all other systems reviewed are Neg Mental Status Examination Appearance: Disheveled Consciousness: Alert Motor Activity: Other (unable to ascertain patient sitting on her bed) Speech: Other (patient making nonsensical statements) Language: Other (nonsensical) Fund of Knowledge: Poor Attention and Concentration: Easily Distracted Memory: Impaired Mood: Angry, Anxious, Irritable Affect: Other (increase range and intensity) Thought Process & Associations: Disorganized Thought Content: Other (significantly disorganized) Hallucination Type: Auditory, Visual Delusion Type: Bizarre Suicidal Ideation: No Suicidal Plan: No Suicidal Intention: No Homicidal Ideation: No Homicidal Plan: No Homicidal Intention: No Insight: Poor Judgment: Poor Results Labs Test 04/28/17 06:32 04/28/17 06:52 White Blood Count 6.9 TH/MM3 Red Blood Count 4.07 MIL/MM3 Hemoglobin 12.1 GM/DL Hematocrit 35.1 % Mean Corpuscular Volume 86.2 FL Mean Corpuscular Hemoglobin 29.8 PG Mean Corpuscular Hemoglobin Concent 34.6 % Red Cell Distribution Width 15.1 % Platelet Count 151 TH/MM3 Mean Platelet Volume 8.5 FL Neutrophils (%) (Auto) 52.2 % Lymphocytes (%) (Auto) 33.1 % Monocytes (%) (Auto) 10.7 % Eosinophils (%) (Auto) 2.6 % Basophils (%) (Auto) 1.4 % Neutrophils # (Auto) 3.6 TH/MM3 Lymphocytes # (Auto) 2.3 TH/MM3 Monocytes # (Auto) 0.7 TH/MM3 Eosinophils # (Auto) 0.2 TH/MM3 Basophils # (Auto) 0.1 TH/MM3 CBC Comment DIFF FINAL Differential Comment Blood Urea Nitrogen 21 MG/DL Creatinine 0.81 MG/DL Random Glucose 94 MG/DL Calcium Level 8.9 MG/DL Sodium Level 142 MEQ/L Potassium Level 3.4 MEQ/L Chloride Level 108 MEQ/L Carbon Dioxide Level 24.9 MEQ/L Anion Gap 9 MEQ/L Estimat Glomerular Filtration Rate 71 ML/MIN Triglycerides Level 99 MG/DL Cholesterol Level 180 MG/DL LDL Cholesterol 95 MG/DL HDL Cholesterol 65.7 MG/DL Cholesterol/HDL Ratio 2.73 RATIO Free Thyroxine 0.60 NG/DL Thyroid Stimulating Hormone 3rd Gen 12.700 uIU/ML Vitals/IOs Vital Signs Date Time Temp Pulse Resp B/P (MAP) Pulse Ox O2 Delivery O2 Flow Rate FiO2 04/28/17 04:42 98.4 87 18 142/72 (95) 92 04/27/17 03:53 Room Air Assessment & Plan Problem List: (1) Schizophrenia, paranoid, chronic with acute exacerbation ICD Codes: F20.0 - Paranoid schizophrenia Status: Acute Assessment & Plan Estimated LOS: days patient continues quite psychotic and delusional though it is somewhat softer. She is somewhat more focused and less disorganized. Will and schedule Geodon to regimen today Justification for Cont. Inpt. At this time patient will decompensate if placed in the lower level of care Discharge Planning Hopefully to return home with family Seth Rice MD Apr 28, 2017 12:58
[2017-04-28] MEDS: ZIPRASIDONE HCL 40 MG CAP PO SCH ×2 (13:00→18:00)
[2017-04-28] MEDS: hydrOXYzine HCL 50 MG TAB PO PRN (13:27)
--- NOTE | 2017-04-28 14:04 | HHI.PR ---
Subjective Remarks Follow-up hypothyroidism and leukocytosis. Patient is seen and examined in her room with sitter at bedside. Today she is calm and talking in full sentences, she is oriented to self and following simple commands. She denies any fevers, chills, nausea, vomiting or diarrhea. She is able to tell me that she is incontinent of stool, but repots her last BP yesterday. When asked what dose of levothyroxine she is she tells me 1,5,0. She also explains to me that she takes this in the morning one hour before her breakfast. Objective Vitals Vital Signs Date Time Temp Pulse Resp B/P (MAP) Pulse Ox O2 Delivery O2 Flow Rate FiO2 04/28/17 04:42 98.4 87 18 142/72 (95) 92 I/O 04/27/17 04/27/17 04/27/17 04/28/17 04/28/17 04/28/17 07:00 15:00 23:00 07:00 15:00 23:00 Intake Total 480 ml Balance 480 ml Intake Oral 480 ml Result Diagram: 04/28/17 0632 04/28/17 0652 Objective Remarks GENERAL: Disheveled elderly patient, calm and cooperative this morning SKIN: No rashes or lesions. Cool and dry. Chest ecchymosis and right lower leg ecchymosis noted HEAD: Atraumatic. Normocephalic. EYES: Pupils equal round and reactive. No scleral icterus. No injection or drainage. ENT: Nose without bleeding, purulent drainage. Airway patent. NECK: Trachea midline. No JVD. CARDIOVASCULAR: Regular rate and rhythm without murmurs, gallops, or rubs. RESPIRATORY: Clear to auscultation. Breath sounds equal bilaterally. No wheezes , rales, or rhonchi. GASTROINTESTINAL: Abdomen soft, non-tender, nondistended. No guarding. MUSCULOSKELETAL: Extremities without clubbing, cyanosis, or edema. NEUROLOGICAL: Awake and alert oriented to self only. Motor and sensory grossly within normal limits. 4/5 muscle strength in all muscle groups. Normal speech. A/P Assessment and Plan 66-year-old female with History of schizophrenia with acute psychosis and paranoia - Management per psychiatry - Appears more calmer and communicating better today. History of anxiety/depression -Management per psychiatry Leukocytosis - UA negative, x-ray pending, follow up and treat accordingly Hypothyroidism - Patient reports taking Levothyroxine 150mcg, discussed with nurse to please contact son for levothyroxine dose - Levothyroxine resumed, will need to check TSH in 6 weeks with PCP - TSH 12.7, Free T4 0.6 DVT prophylaxis: Encourage ambulation Discussed with nurse. Carl Ortiz Apr 28, 2017 14:04
[2017-04-28] MEDS ORDERED: TRAZ100T10 PO (14:38)
[2017-04-28] MEDS ORDERED: DIVA500T3 PO (14:41)
[2017-04-28] MEDS ORDERED: LEVO150T7 PO (14:53)
--- NOTE | 2017-04-28 16:14 | RADRPT ---
EXAM DATE/TIME: 04/28/2017 15:54 [facility] COMPARISON: No previous studies available for comparison. INDICATIONS : Short of breath, infiltrate. MEDICAL HISTORY : Diabetes mellitus type 2. Schizophrenic. SURGICAL HISTORY : None. ENCOUNTER: Initial ACUITY: 1 day PAIN SCORE: 0/10 LOCATION: Bilateral chest FINDINGS: A single view of the chest demonstrates the lungs to be symmetrically aerated without evidence of mas s, infiltrate or effusion. The cardiomediastinal contours are unremarkable. Mild scoliosis of the t horacic spine. Osseous structures are intact. CONCLUSION: 1. No acute cardiopulmonary disease. Adarsh Hannah MD on April 28, 2017 at 16:10 Board Certified Radiologist. This report was verified electronically.
[2017-04-28 18:07] VITALS: BP 118/66; PULSE 88; RESP 18; TEMP 98.4; O2SAT 97
[2017-04-28] MEDS: REMOVE OLD NICOTINE PATCH T-DERMAL SCH (20:40)
[2017-04-28] MEDS: QUEtiapine FUMARATE 200 MG TAB PO SCH (20:41)
[2017-04-28] MEDS: ALUMINUM/MAGNESIUM/SIMETH 30 ML CUP PO PRN (20:45)
[2017-04-28] MEDS: traZODone HCL 50 MG TAB PO PRN (22:58)
[2017-04-28] MEDS: ACETAMINOPHEN 325 MG TAB PO PRN (23:02)
[2017-04-29] MEDS: hydrOXYzine HCL 50 MG TAB PO PRN (01:13)
[2017-04-29 06:20] VITALS: BP 120/59; PULSE 80; RESP 16; TEMP 97.6
[2017-04-29] MEDS: LEVOTHYROXINE SODIUM 150 MCG TAB PO SCH (06:43)
[2017-04-29] MEDS: CHOLECALCIFEROL (VIT D3) 1000 UNIT TAB PO SCH (08:42)
[2017-04-29] MEDS: ESCITALOPRAM OXALATE 20 MG TAB PO SCH (08:42)
[2017-04-29] MEDS: ZIPRASIDONE HCL 40 MG CAP PO SCH ×3 (08:42→17:11)
[2017-04-29] MEDS: DIVALPROEX SODIUM E.R. 500 MG TAB PO SCH (08:42)
[2017-04-29] MEDS: ASPIRIN 81 MG CHEW TAB CHEW SCH (08:42)
[2017-04-29] MEDS: NICOTINE 21 MG/24 HR PATCH T-DERMAL SCH (08:44)
--- NOTE | 2017-04-29 11:21 | HHI.PYPN ---
Subjective Remarks Patient seen in dayroom sitting in Aria chair, patient seen with nurse Quyen and counselor anu. Patient somewhat agitated though cooperative with me, she is alert fairly well oriented. Now stating she has a headache she does not wish to continue with her Geodon. She's been compliant with her other psychotropics. This time we will encourage patient to be compliant with all medications. Will consider taper of her Geodon if remains compliant with all the medications over the weekend Review of Systems Except as stated in HPI: all other systems reviewed are Neg Mental Status Examination Appearance: Disheveled Consciousness: Alert Motor Activity: Other (unable to ascertain patient sitting on her bed) Speech: Other (patient making nonsensical statements) Language: Other (nonsensical) Fund of Knowledge: Poor Attention and Concentration: Easily Distracted Memory: Impaired Mood: Angry, Anxious, Irritable Affect: Other (increase range and intensity) Thought Process & Associations: Disorganized Thought Content: Other (significantly disorganized) Hallucination Type: Auditory, Visual Delusion Type: Bizarre Suicidal Ideation: No Suicidal Plan: No Suicidal Intention: No Homicidal Ideation: No Homicidal Plan: No Homicidal Intention: No Insight: Poor Judgment: Poor Results Vitals/IOs Vital Signs Date Time Temp Pulse Resp B/P (MAP) Pulse Ox O2 Delivery O2 Flow Rate FiO2 04/29/17 06:20 97.6 80 16 120/59 (79) 04/28/17 18:07 97 04/27/17 03:53 Room Air Intake and Output 04/29/17 04/29/17 04/30/17 08:00 16:00 00:00 Intake Total 360 ml Balance 360 ml Assessment & Plan Problem List: (1) Schizophrenia, paranoid, chronic with acute exacerbation ICD Codes: F20.0 - Paranoid schizophrenia Status: Acute Assessment & Plan Estimated LOS: days patient continues psychotic paranoid is complaining of a headache. We'll of hospitalist investigate this. Encouraged compliance with all her medications Justification for Cont. Inpt. At this time patient decompensated placed on a lower level of care Discharge Planning To be determined due to contact patient's family Seth Rice MD Apr 29, 2017 11:21
--- NOTE | 2017-04-29 13:27 | HHI.PR ---
Subjective Remarks Follow-up hypothyroidism and leukocytosis. Patient is seen and examined in the room with tach at side. She is awake, alert, and engages in conversation. She reports that she has not had a bowel movement, denies any abdominal pain or discomfort, denying any nausea or vomiting. She denies any fevers, chills, shortness of breath or cough. She voices no other complaints at this moment. Objective Vitals Vital Signs Date Time Temp Pulse Resp B/P (MAP) Pulse Ox O2 Delivery O2 Flow Rate FiO2 04/29/17 06:20 97.6 80 16 120/59 (79) 04/28/17 18:07 98.4 88 18 118/66 (83) 97 I/O 04/28/17 04/28/17 04/28/17 04/29/17 04/29/17 04/29/17 07:00 15:00 23:00 07:00 15:00 23:00 Intake Total 480 ml 240 ml 360 ml Balance 480 ml 240 ml 360 ml Intake Oral 480 ml 240 ml 360 ml Result Diagram: 04/28/17 0632 04/28/17 0652 Imaging Last Impressions Chest X-Ray 04/28/17 0000 Signed Impressions: Service Date/Time: April 15:54 - CONCLUSION: 1. No acute cardiopulmonary disease. Adarsh Hannah MD Objective Remarks GENERAL: Disheveled elderly patient, calm and cooperative. SKIN: No rashes or lesions. Cool and dry. Chest ecchymosis and right lower leg ecchymosis noted HEAD: Atraumatic. Normocephalic. EYES: Pupils equal round and reactive. No scleral icterus. No injection or drainage. ENT: Nose without bleeding, purulent drainage. Airway patent. NECK: Trachea midline. No JVD. CARDIOVASCULAR: Regular rate and rhythm without murmurs, gallops, or rubs. RESPIRATORY: Clear to auscultation. Breath sounds equal bilaterally. No wheezes , rales, or rhonchi. GASTROINTESTINAL: Abdomen soft, non-tender, nondistended. No guarding. MUSCULOSKELETAL: Extremities without clubbing, cyanosis, or edema. NEUROLOGICAL: Awake and alert oriented to self only. Motor and sensory grossly within normal limits. 4/5 muscle strength in all muscle groups. Normal speech. A/P Assessment and Plan 66-year-old female with History of schizophrenia with acute psychosis and paranoia - Management per psychiatry - Appears more calmer and communicating better today. History of anxiety/depression -Management per psychiatry Leukocytosis - UA negative, x-ray reviewed, no acute cardiopulmonary disease. No leukocytosis noted on CBC from 04/28 Hypothyroidism - Patient reports taking Levothyroxine 150mcg, discussed with nurse to please contact son for levothyroxine dose - Levothyroxine resumed, will need to check TSH in 6 weeks with PCP - TSH 12.7, Free T4 0.6 Constipation -Discussed with nurse administering milk of magnesia today, will start Tete- Colace daily DVT prophylaxis: Encourage ambulation Discussed with nurse. Will sign off, please reconsult if needed. Carl Ortiz Apr 29, 2017 13:27
[2017-04-29 18:10] VITALS: BP 129/60; PULSE 79; RESP 16; TEMP 98.4; O2SAT 95
[2017-04-29] MEDS: REMOVE OLD NICOTINE PATCH T-DERMAL SCH (21:00)
[2017-04-29] MEDS: QUEtiapine FUMARATE 200 MG TAB PO SCH (21:05)
[2017-04-29] MEDS: traZODone HCL 50 MG TAB PO PRN (21:06)
[2017-04-29] MEDS: ACETAMINOPHEN 325 MG TAB PO PRN (23:48)
[2017-04-30] MEDS: LEVOTHYROXINE SODIUM 150 MCG TAB PO SCH (06:23)
[2017-04-30 07:18] VITALS: BP 140/63; PULSE 70; RESP 18; O2SAT 97
[2017-04-30] MEDS: DOCUSATE SODIUM 50 MG/SENNA 8.6 MG TAB PO SCH (08:13)
[2017-04-30] MEDS: ZIPRASIDONE HCL 40 MG CAP PO SCH ×2 (08:14→17:10)
[2017-04-30] MEDS: ESCITALOPRAM OXALATE 20 MG TAB PO SCH (08:14)
[2017-04-30] MEDS: NICOTINE 21 MG/24 HR PATCH T-DERMAL SCH (08:14)
[2017-04-30] MEDS: ASPIRIN 81 MG CHEW TAB CHEW SCH (08:14)
[2017-04-30] MEDS: CHOLECALCIFEROL (VIT D3) 1000 UNIT TAB PO SCH (08:14)
[2017-04-30] MEDS: DIVALPROEX SODIUM E.R. 500 MG TAB PO SCH (08:14)
--- NOTE | 2017-04-30 18:04 | HHI.PYPN ---
Subjective Remarks Patient was seen and case discussed with nursing. Patient is alert and oriented 3. She remains psychotic believing that lasers are integrating into her body what her name badges scanned. Chief complaint today is insomnia. Thought processes disorganized. Patient does deny auditory visual hallucinations. Denies suicidal homicidal ideation intent or plan Mental Status Examination Appearance: Disheveled Consciousness: Alert Motor Activity: Other (unable to ascertain patient sitting on her bed) Speech: Other (patient making nonsensical statements) Language: Other (nonsensical) Fund of Knowledge: Poor Attention and Concentration: Easily Distracted Memory: Impaired Mood: Anxious Affect: Other (increase range and intensity) Thought Process & Associations: Disorganized Thought Content: Other (significantly disorganized) Hallucination Type: Auditory, Visual Delusion Type: Bizarre Suicidal Ideation: No Suicidal Plan: No Suicidal Intention: No Homicidal Ideation: No Homicidal Plan: No Homicidal Intention: No Insight: Poor Judgment: Poor Results Vitals/IOs Vital Signs Date Time Temp Pulse Resp B/P (MAP) Pulse Ox O2 Delivery O2 Flow Rate FiO2 04/30/17 07:18 70 18 140/63 (88) 97 04/29/17 18:10 98.4 04/27/17 03:53 Room Air Intake and Output 04/30/17 04/30/17 05/01/17 08:00 16:00 00:00 Intake Total 480 ml 960 ml Balance 480 ml 960 ml Assessment & Plan Problem List: (1) Schizophrenia, paranoid, chronic with acute exacerbation ICD Codes: F20.0 - Paranoid schizophrenia Status: Acute Assessment & Plan Increase trazodone to 100 mg by mouth daily at bedtime Justification for Cont. Inpt. Patient would decompensate in a less restrictive setting Erik Michel DO Apr 30, 2017 18:04
[2017-04-30 18:14] VITALS: BP 148/59; PULSE 87; RESP 16; TEMP 98.3; O2SAT 98
[2017-04-30] MEDS: QUEtiapine FUMARATE 200 MG TAB PO SCH (20:20)
[2017-04-30] MEDS: REMOVE OLD NICOTINE PATCH T-DERMAL SCH (21:00)
[2017-05-01] MEDS: LEVOTHYROXINE SODIUM 150 MCG TAB PO SCH (05:29)
[2017-05-01 05:35] VITALS: BP 159/63; PULSE 76; RESP 18; TEMP 98.1; O2SAT 96
[2017-05-01] MEDS: ZIPRASIDONE HCL 40 MG CAP PO SCH ×2 (08:26→18:03)
[2017-05-01] MEDS: ESCITALOPRAM OXALATE 20 MG TAB PO SCH (08:26)
[2017-05-01] MEDS: DIVALPROEX SODIUM E.R. 500 MG TAB PO SCH (08:26)
[2017-05-01] MEDS: ASPIRIN 81 MG CHEW TAB CHEW SCH (08:26)
[2017-05-01] MEDS: DOCUSATE SODIUM 50 MG/SENNA 8.6 MG TAB PO SCH (08:26)
[2017-05-01] MEDS: CHOLECALCIFEROL (VIT D3) 1000 UNIT TAB PO SCH (08:27)
[2017-05-01] MEDS: NICOTINE 21 MG/24 HR PATCH T-DERMAL SCH (08:27)
--- NOTE | 2017-05-01 13:08 | HHI.PYPN ---
Subjective Remarks Patient was seen and case discussed with nursing. Patient made a bizarre statement where she felt that somebody was smoking and subsequently that cut her upper lip. Remains pleasant and cooperative with exam. Denies auditory visual hallucinations. Compliant with medications Mental Status Examination Appearance: Disheveled Consciousness: Alert Motor Activity: Other (unable to ascertain patient sitting on her bed) Speech: Other (patient making nonsensical statements) Language: Other (nonsensical) Fund of Knowledge: Poor Attention and Concentration: Easily Distracted Memory: Impaired Mood: Anxious Affect: Other (increase range and intensity) Thought Process & Associations: Disorganized Thought Content: Other (significantly disorganized) Hallucination Type: Auditory, Visual Delusion Type: Bizarre Suicidal Ideation: No Suicidal Plan: No Suicidal Intention: No Homicidal Ideation: No Homicidal Plan: No Homicidal Intention: No Insight: Poor Judgment: Poor Results Vitals/IOs Vital Signs Date Time Temp Pulse Resp B/P (MAP) Pulse Ox O2 Delivery O2 Flow Rate FiO2 05/01/17 05:35 98.1 76 18 159/63 (95) 96 Intake and Output 05/01/17 05/01/17 05/02/17 08:00 16:00 00:00 Intake Total 1080 ml Balance 1080 ml Assessment & Plan Problem List: (1) Schizophrenia, paranoid, chronic with acute exacerbation ICD Codes: F20.0 - Paranoid schizophrenia Status: Acute Assessment & Plan Continue current treatment plan Justification for Cont. Inpt. Patient would decompensate in a less restrictive setting Erik Michel DO May 01, 2017 13:08
[2017-05-01] MEDS: ACETAMINOPHEN 325 MG TAB PO PRN (15:07)
[2017-05-01 15:55] VITALS: BP 110/53; PULSE 77; RESP 17; TEMP 98.7; O2SAT 97
[2017-05-01] MEDS: traZODone HCL 50 MG TAB PO PRN (20:48)
[2017-05-01] MEDS: QUEtiapine FUMARATE 200 MG TAB PO SCH (20:48)
[2017-05-01] MEDS: REMOVE OLD NICOTINE PATCH T-DERMAL SCH (20:49)
[2017-05-02] MEDS: LEVOTHYROXINE SODIUM 150 MCG TAB PO SCH (05:31)
[2017-05-02 05:36] VITALS: BP 135/57; PULSE 80; RESP 17; TEMP 98.5; O2SAT 99
[2017-05-02] MEDS: ZIPRASIDONE HCL 40 MG CAP PO SCH ×2 (08:54→17:11)
[2017-05-02] MEDS: DIVALPROEX SODIUM E.R. 500 MG TAB PO SCH (08:54)
[2017-05-02] MEDS: CHOLECALCIFEROL (VIT D3) 1000 UNIT TAB PO SCH (08:55)
[2017-05-02] MEDS: DOCUSATE SODIUM 50 MG/SENNA 8.6 MG TAB PO SCH (08:55)
[2017-05-02] MEDS: ESCITALOPRAM OXALATE 20 MG TAB PO SCH (08:55)
[2017-05-02] MEDS: ASPIRIN 81 MG CHEW TAB CHEW SCH (08:55)
[2017-05-02] MEDS: NICOTINE 21 MG/24 HR PATCH T-DERMAL SCH (09:00)
--- NOTE | 2017-05-02 15:34 | HHI.PYPN ---
Subjective Remarks Patient seen in dayroom with nurse Napier, chart review, patient discussed with nurse, patient compliant medications. Patient continues alert mildly disorganized but much improved over admission behaviors. Is complaining of poor sleep at night. Interest the precipitants for this hospitalization. We' ll increase at bedtime Seroquel from 20 mg 300 mg at at bedtime. She denies voices or visions at the present time. We are starting to discuss discharge planning with her she quite emphatically stated she wishes to return to her own home. Patient may need to discuss with her services in that home to make that request possible Review of Systems Except as stated in HPI: all other systems reviewed are Neg Mental Status Examination Appearance: Disheveled Consciousness: Alert Motor Activity: Other (unable to ascertain patient sitting on her bed) Speech: Other (patient making nonsensical statements) Language: Other (nonsensical) Fund of Knowledge: Poor Attention and Concentration: Easily Distracted Memory: Impaired Mood: Anxious Affect: Other (increase range and intensity) Thought Process & Associations: Disorganized Thought Content: Other (significantly disorganized) Hallucination Type: Auditory, Visual Delusion Type: Bizarre Suicidal Ideation: No Suicidal Plan: No Suicidal Intention: No Homicidal Ideation: No Homicidal Plan: No Homicidal Intention: No Insight: Poor Judgment: Poor Results Vitals/IOs Vital Signs Date Time Temp Pulse Resp B/P (MAP) Pulse Ox O2 Delivery O2 Flow Rate FiO2 05/02/17 05:36 98.5 80 17 135/57 (83) 99 Intake and Output 05/02/17 05/02/17 05/03/17 08:00 16:00 00:00 Intake Total 120 ml 120 ml Balance 120 ml 120 ml Assessment & Plan Problem List: (1) Schizophrenia, paranoid, chronic with acute exacerbation ICD Codes: F20.0 - Paranoid schizophrenia Status: Acute Assessment & Plan Estimated LOS: days patient continues to improve, though sleep still is a problem. Will increase at bedtime Seroquel to 300 mg Justification for Cont. Inpt. At this time patient will decompensate a placed a lower level of care Discharge Planning Possibly to return home Seth Rice MD May 02, 2017 15:34
[2017-05-02 17:39] VITALS: BP 147/62; PULSE 84; RESP 18; TEMP 98.7; O2SAT 95
[2017-05-02] MEDS: REMOVE OLD NICOTINE PATCH T-DERMAL SCH (21:00)
[2017-05-02] MEDS: QUEtiapine FUMARATE 200 MG TAB PO SCH (21:04)
[2017-05-02] MEDS: traZODone HCL 50 MG TAB PO PRN (21:04)
[2017-05-03] MEDS: LEVOTHYROXINE SODIUM 150 MCG TAB PO SCH (06:17)
[2017-05-03 06:25] VITALS: BP 134/60; PULSE 83; RESP 17; TEMP 98.4; O2SAT 96
[2017-05-03] MEDS: NICOTINE 21 MG/24 HR PATCH T-DERMAL SCH (09:00)
[2017-05-03] MEDS: ASPIRIN 81 MG CHEW TAB CHEW SCH (09:34)
[2017-05-03] MEDS: DOCUSATE SODIUM 50 MG/SENNA 8.6 MG TAB PO SCH (09:34)
[2017-05-03] MEDS: ESCITALOPRAM OXALATE 20 MG TAB PO SCH (09:35)
[2017-05-03] MEDS: DIVALPROEX SODIUM E.R. 500 MG TAB PO SCH (09:35)
[2017-05-03] MEDS: ZIPRASIDONE HCL 40 MG CAP PO SCH (09:35)
[2017-05-03] MEDS: CHOLECALCIFEROL (VIT D3) 1000 UNIT TAB PO SCH (09:35)
--- NOTE | 2017-05-03 10:59 | HHI.PYPN ---
Subjective Remarks Patient seen in [place] with nurse Quyen and counselor Julia, chart reviewed, patient compliant medications, patient discussed with nurse. Patient continues to show improvement though she continues somewhat labile and vigilant. Her insight still is somewhat poor. Will increase Geodon to 60 mg twice a day Review of Systems Except as stated in HPI: all other systems reviewed are Neg Mental Status Examination Appearance: Disheveled Consciousness: Alert Motor Activity: Other (unable to ascertain patient sitting on her bed) Speech: Other (patient making nonsensical statements) Language: Other (nonsensical) Fund of Knowledge: Poor Attention and Concentration: Easily Distracted Memory: Impaired Mood: Anxious Affect: Other (increase range and intensity) Thought Process & Associations: Disorganized Thought Content: Other (significantly disorganized) Hallucination Type: Auditory, Visual Delusion Type: Bizarre Suicidal Ideation: No Suicidal Plan: No Suicidal Intention: No Homicidal Ideation: No Homicidal Plan: No Homicidal Intention: No Insight: Poor Judgment: Poor Results Vitals/IOs Vital Signs Date Time Temp Pulse Resp B/P (MAP) Pulse Ox O2 Delivery O2 Flow Rate FiO2 05/03/17 06:25 98.4 83 17 134/60 (84) 96 Assessment & Plan Problem List: (1) Schizophrenia, paranoid, chronic with acute exacerbation ICD Codes: F20.0 - Paranoid schizophrenia Status: Acute Assessment & Plan Estimated LOS: days patient improving though continue psychotic please see medication adjustment above Justification for Cont. Inpt. At this time patient will decompensate placed in the lower level of care Discharge Planning To be determined Seth Rice MD May 03, 2017 10:58
[2017-05-03 17:25] VITALS: BP 126/56; PULSE 80; RESP 16; TEMP 98.4; O2SAT 95
[2017-05-03] MEDS: ZIPRASIDONE HCL 60 MG CAP PO SCH (17:40)
[2017-05-03] MEDS: traZODone HCL 50 MG TAB PO PRN (20:44)
[2017-05-03] MEDS: QUEtiapine FUMARATE 200 MG TAB PO SCH (20:44)
[2017-05-03] MEDS: REMOVE OLD NICOTINE PATCH T-DERMAL SCH (20:47)
[2017-05-04] MEDS: LEVOTHYROXINE SODIUM 150 MCG TAB PO SCH (05:57)
[2017-05-04 06:27] VITALS: BP 132/59; PULSE 73; RESP 18; TEMP 98.5; O2SAT 97
[2017-05-04] MEDS: NICOTINE 21 MG/24 HR PATCH T-DERMAL SCH (09:00)
[2017-05-04] MEDS: DIVALPROEX SODIUM E.R. 500 MG TAB PO SCH (09:01)
[2017-05-04] MEDS: ASPIRIN 81 MG CHEW TAB CHEW SCH (09:01)
[2017-05-04] MEDS: DOCUSATE SODIUM 50 MG/SENNA 8.6 MG TAB PO SCH (09:01)
[2017-05-04] MEDS: CHOLECALCIFEROL (VIT D3) 1000 UNIT TAB PO SCH (09:01)
[2017-05-04] MEDS: ESCITALOPRAM OXALATE 20 MG TAB PO SCH (09:02)
[2017-05-04] MEDS: ZIPRASIDONE HCL 60 MG CAP PO SCH ×2 (09:02→17:40)
[2017-05-04] MEDS: ALUMINUM/MAGNESIUM/SIMETH 30 ML CUP PO PRN (09:18)
--- NOTE | 2017-05-04 10:25 | HHI.PYPN ---
Subjective Remarks Patient seen in day room with nurse Thais, chart review, patient compliant medications, patient discussed with nurse. Patient continues to show improvement in her affect focus and concentration are processing. She is oriented at the present time 4. She denies suicidality homicidality voices or visions. She states she is feeling better she is compliant with her medication. This with the patient does have capacity I will lift Crowe act allow patient to sign voluntary Review of Systems Except as stated in HPI: all other systems reviewed are Neg Mental Status Examination Appearance: Disheveled Consciousness: Alert Motor Activity: Other (unable to ascertain patient sitting on her bed) Speech: Other (patient making nonsensical statements) Language: Other (nonsensical) Fund of Knowledge: Poor Attention and Concentration: Easily Distracted Memory: Impaired Mood: Anxious Affect: Other (increase range and intensity) Thought Process & Associations: Disorganized Thought Content: Other (significantly disorganized) Hallucination Type: Auditory, Visual Delusion Type: Bizarre Suicidal Ideation: No Suicidal Plan: No Suicidal Intention: No Homicidal Ideation: No Homicidal Plan: No Homicidal Intention: No Insight: Poor Judgment: Poor Results Vitals/IOs Vital Signs Date Time Temp Pulse Resp B/P (MAP) Pulse Ox O2 Delivery O2 Flow Rate FiO2 05/04/17 06:27 98.5 73 18 132/59 (83) 97 Intake and Output 05/04/17 05/04/17 05/05/17 08:00 16:00 00:00 Intake Total 0 ml Balance 0 ml Assessment & Plan Problem List: (1) Schizophrenia, paranoid, chronic with acute exacerbation ICD Codes: F20.0 - Paranoid schizophrenia Status: Acute Assessment & Plan Estimated LOS: days patient psychosis continues to resolve she showing improvement in her behavior, appears compliant medications. Now denies suicidality homicidality voices or visions. Will lift Crowe act. Will outpatient sign voluntary. Continue to work on placement issues Justification for Cont. Inpt. At this time patient will decompensate and placed a lower level of care Discharge Planning To be determined Seth Rice MD May 04, 2017 10:25
--- NOTE | 2017-05-04 14:56 | PD.TTN ---
Patient Problems 1. Discharge planning 2. Medication compliance 3. Knowledge deficit 4. Lack of coping skills Progress Toward Goals Provider Present: Dr. Sunni Rice Provider Input: 05/02/17 patient is improving, meets criteria, med adjustment 05/04/17 patient has more insight, she can return home with C ini next few days Psychiatric Counselors Present: Christiane Yates LCSW Psych Therapist Input: 05/02/17 spoke with family about [facility] , at this time she may not be willing to go 05/04/17 patient wants to be home with [facility] and has improved, awaiting for med stabilization Group Spec/RT/OT/LEWIS Present: DEBBIE Estrella Group Spec/RT/OT/LEWIS Input: 05/04/17 attends most groups, pleasantly and appropriate Christiane Yates LCSW May 04, 2017 14:56
[2017-05-04] MEDS: ACETAMINOPHEN 325 MG TAB PO PRN ×2 (15:40→21:42)
[2017-05-04 18:07] VITALS: BP 121/50; PULSE 72; RESP 17; TEMP 98.1; O2SAT 97
[2017-05-04] MEDS: QUEtiapine FUMARATE 200 MG TAB PO SCH (20:09)
[2017-05-04] MEDS: traZODone HCL 50 MG TAB PO PRN (20:10)
[2017-05-04] MEDS: REMOVE OLD NICOTINE PATCH T-DERMAL SCH (20:35)
[2017-05-04] MEDS: hydrOXYzine HCL 50 MG TAB PO PRN (21:43)
[2017-05-05] MEDS: LEVOTHYROXINE SODIUM 150 MCG TAB PO SCH (05:37)
[2017-05-05 06:03] VITALS: BP 155/62; PULSE 76; RESP 18; TEMP 98.1; O2SAT 98
[2017-05-05] MEDS: ESCITALOPRAM OXALATE 20 MG TAB PO SCH (08:23)
[2017-05-05] MEDS: CHOLECALCIFEROL (VIT D3) 1000 UNIT TAB PO SCH (08:23)
[2017-05-05] MEDS: NICOTINE 21 MG/24 HR PATCH T-DERMAL SCH (08:23)
[2017-05-05] MEDS: ZIPRASIDONE HCL 60 MG CAP PO SCH ×2 (08:23→17:55)
[2017-05-05] MEDS: ASPIRIN 81 MG CHEW TAB CHEW SCH (08:23)
[2017-05-05] MEDS: DOCUSATE SODIUM 50 MG/SENNA 8.6 MG TAB PO SCH (08:23)
[2017-05-05] MEDS: DIVALPROEX SODIUM E.R. 500 MG TAB PO SCH (09:00)
--- NOTE | 2017-05-05 10:47 | HHI.PYPN ---
Subjective Remarks Patient seen in day room with nurse Thais, chart review, patient discussed with nurse. Patient states she still has insomnia with medication she is being prescribed. It appears she is requesting benzodiazepine either Ambien or Ativan. Staff verifies patient slept poorly last night though she did have her scheduled medications in the when necessary trazodone. Will increase at bedtime Seroquel for prevention milligrams to 400 mg continue to observe. We' ll continue to refrain from benzodiazepines and/or opiates Review of Systems Except as stated in HPI: all other systems reviewed are Neg Mental Status Examination Appearance: Disheveled Consciousness: Alert Motor Activity: Other (unable to ascertain patient sitting on her bed) Speech: Other (patient making nonsensical statements) Language: Other (nonsensical) Fund of Knowledge: Poor Attention and Concentration: Easily Distracted Memory: Impaired Mood: Anxious Affect: Other (increase range and intensity) Thought Process & Associations: Disorganized Thought Content: Other (significantly disorganized) Hallucination Type: Auditory, Visual Delusion Type: Bizarre Suicidal Ideation: No Suicidal Plan: No Suicidal Intention: No Homicidal Ideation: No Homicidal Plan: No Homicidal Intention: No Insight: Poor Judgment: Poor Results Vitals/IOs Vital Signs Date Time Temp Pulse Resp B/P (MAP) Pulse Ox O2 Delivery O2 Flow Rate FiO2 05/05/17 06:03 98.1 76 18 155/62 (93) 98 Intake and Output 05/05/17 05/05/17 05/06/17 08:00 16:00 00:00 Intake Total 240 ml Balance 240 ml Assessment & Plan Problem List: (1) Schizophrenia, paranoid, chronic with acute exacerbation ICD Codes: F20.0 - Paranoid schizophrenia Status: Acute Assessment & Plan Estimated LOS: days patient continues somewhat psychotic somewhat drug seeking. She medication adjustment above Justification for Cont. Inpt. At this time patient will decompensate in place to the lower level of care Discharge Planning To return home Seth Rice MD May 05, 2017 10:47
[2017-05-05 14:49] VITALS: BP 143/70; PULSE 83; RESP 18; TEMP 97.9; O2SAT 98
[2017-05-05] MEDS: REMOVE OLD NICOTINE PATCH T-DERMAL SCH (20:12)
[2017-05-05] MEDS ORDERED: QUEtiapine FUMARATE 200 MG TAB PO SCH (21:00)
[2017-05-06] MEDS: LEVOTHYROXINE SODIUM 150 MCG TAB PO SCH (05:41)
[2017-05-06 06:21] VITALS: BP 125/57; PULSE 76; RESP 16; TEMP 97.7; O2SAT 98
[2017-05-06] MEDS: CHOLECALCIFEROL (VIT D3) 1000 UNIT TAB PO SCH (08:12)
[2017-05-06] MEDS: ASPIRIN 81 MG CHEW TAB CHEW SCH (08:13)
[2017-05-06] MEDS: DOCUSATE SODIUM 50 MG/SENNA 8.6 MG TAB PO SCH (08:13)
[2017-05-06] MEDS: ESCITALOPRAM OXALATE 20 MG TAB PO SCH (08:13)
[2017-05-06] MEDS: DIVALPROEX SODIUM E.R. 500 MG TAB PO SCH (08:19)
[2017-05-06] MEDS: ZIPRASIDONE HCL 60 MG CAP PO SCH ×2 (08:20→17:04)
[2017-05-06] MEDS: NICOTINE 21 MG/24 HR PATCH T-DERMAL SCH (09:00)
[2017-05-06] MEDS ORDERED: LEVO150T7 PO (13:02)
[2017-05-06] MEDS ORDERED: ESCI20TA PO (13:02)
[2017-05-06] MEDS ORDERED: TRAZ100T10 PO (13:02)
[2017-05-06] MEDS ORDERED: ASPI81CH7 CHEW (13:02)
[2017-05-06] MEDS ORDERED: SERO400T PO (13:02)
[2017-05-06] MEDS ORDERED: DIVA500T3 PO (13:02)
[2017-05-06] MEDS ORDERED: GEOD60CA PO (13:02)
--- NOTE | 2017-05-06 13:06 | HHI.DS ---
Psychiatry Discharge Summary Inpatient Psychiatric care?: Yes Advance Directive: No Reason Not Provided: Due to Patient Condition Mental Health AdvanceDirective: No Health Care Proxy: No Admission Admission Date Apr 27, 2017 at 03:41 Admission Diagnosis: (1) Schizophrenia, paranoid, chronic with acute exacerbation ICD Code: F20.0 - Paranoid schizophrenia Brief History Patient is a 66-year-old white female well-known post multiple prior contacts comes here under a Crowe act signed by Rc Matamoros and cosigned by : Dated 04/26 and 2212 hrs. that document reviewed essentially stating patient hasn't slept past 3 days having auditory hallucinations patient actively bizarre and psychotic patient seen screened in the ED Depakote blood level XLIX urine toxicology negative blood alcohol level negative. Patient did need ETO's in the emergency department prior to transfer to 2500. Patient seen by me on 2500 patient in her room patient seen with nurse. Patient sitting in bed markedly arouse distractible screaming making nonsensical statements pointing to the ground pointing towards self pointing to her feet. Patient showing no reaction to my presence or to any questions I proposed to her. Though patient's behavior is so out of control they wouldn't ETO of Zyprexa 5 mg Ativan 1 mg Benadryl 25 mg complement the prior Zyprexa injections that have been given. No further information has been available except the fact that the patient is and lives with her son. Chart has been reviewed. We'll attempt to reach patient's son to get further information. It seems patient showing deterioration noncompliance medication increased psychosis over the past week or so. It appears is been no alcohol or other drugs involved with this lady. The patient is a 66-year-old woman, multiple psychiatric admissions, history of schizophrenia, the patient was brought to the hospital again on the Crowe act due to psychotic decompensation, lack of sleep, disruptive behavior and auditory hallucinations. Patient was consulted to me for second opinion. As per conversation with nurse in charge, the patient has been increasingly aggressive, agitated, disorganized, needing multiple ETO's in the last 12 hours. ON My evaluation today the patient is deeply asleep, very sedated, unable to provide any meaningful information for the second opinion. But, based in documentation, alligation of the nurses, collateral information of technicians in Unit and also conversation with Dr. Rice I understand that the patient needs to continue psychiatric hospitalization for stabilization Tobacco Use In Past 30 Days: 5 or More Cigarettes/Day Alcohol Use: Never Hospital Course Patient's initial hospital course was reflective of her severe psychosis disorganization. However once we were given consent to treat patient rapidly responded to her medication. Especially with the addition of the Geodon. Patient has been doing well over the past few days. She now denies suicidality homicidality voices or visions. Patient is seen today is calm cooperative does wish to be discharged to her family. At this time I feel patient reached maximum benefit of this inpatient hospitalization. She'll be discharged today to family with Rx 1 month the follow-up with advanced nurse practitioner Results Blood Pressure 125 / 57 Vital Signs Date Time Temp Pulse Resp B/P (MAP) Pulse Ox O2 Delivery O2 Flow Rate FiO2 05/06/17 06:21 97.7 76 16 125/57 (79) 98 Laboratory Results Test 04/26/17 21:40 04/28/17 06:52 Valproic Acid (Depakene) Level 49 MCG/ML (50-100) Cholesterol Level 180 MG/DL (120-200) HDL Cholesterol 65.7 MG/DL (40.0-60.0) Hemoglobin A1c 6.0 % (4.3-6.0) LDL Cholesterol 95 MG/DL (0-99) Triglycerides Level 99 MG/DL (42-150) Summary of Procedures None done Imaging Last Impressions Chest X-Ray 04/28/17 0000 Signed Impressions: Service Date/Time: April 15:54 - CONCLUSION: 1. No acute cardiopulmonary disease. Adarsh Hannah MD Pending results at discharge: No Medications # of Antipsychotic meds at D/C: 2 Appropriate >1 Antipsych meds?: 2 (would suggest to community clinician possible weaning down on the Seroquel as the patient stabilizes and improves) Approp Antipsych med options 1 - Minimum of three failed multiple trials of monotherapy. 2 - Documented plan to taper to monotherapy due to previous use of multiple meds OR cross-taper in progress at D/C. 3 - Documentation of augmentation of Clozapine. 4 - Justification other than those listed in allowable values 1-3, document here : Discharge Discharge Date: May 06, 2017 Discharge Diagnosis: (1) Schizophrenia, paranoid, chronic with acute exacerbation Diagnosis: Principal ICD Code: F20.0 - Paranoid schizophrenia Status: Acute Pt Condition on Discharge: Stable Discharge Disposition: Discharge Home Discharge Instructions Diet Instructions: As Tolerated, No Restrictions Activities you can perform: Regular-No Restrictions Scheduled Appointment: Advanced Practice Nurse Services Discharge Time > 30 minutes Mental Status Examination Appearance: Disheveled Consciousness: Alert Motor Activity: Other (unable to ascertain patient sitting on her bed) Speech: Other (patient making nonsensical statements) Language: Other (nonsensical) Fund of Knowledge: Poor Attention and Concentration: Easily Distracted Memory: Impaired Mood: Anxious Affect: Other (increase range and intensity) Thought Process & Associations: Disorganized Thought Content: Other (significantly disorganized) Hallucination Type: Auditory, Visual Delusion Type: Bizarre Suicidal Ideation: No Suicidal Plan: No Suicidal Intention: No Homicidal Ideation: No Homicidal Plan: No Homicidal Intention: No Insight: Poor Judgment: Poor Discharge/Advance Care Plan Health Problems: (1) Schizophrenia, paranoid, chronic with acute exacerbation Goals to promote your health * To prevent worsening of your condition and complications * To maintain your health at the optimal level Directions to meet your goals Take your medications as prescribed Follow your dietary instruction Follow activity as directed Keep your appointments as scheduled Take your immunizations and boosters as scheduled If your symptoms worsen call your PCP, if no PCP go to Urgent Care Center or Emergency Room For 06/09 questions related to your inpatient stay or results of tests pending at discharge, please contact Dr. Seth Rice at Smoking is Dangerous to Your Health. Avoid second hand smoking Seth Rice MD May 06, 2017 13:06
== END 2017-05-06 17:00 | disposition home or self-care (01) | DRG 885 ==
LOC: NEDAMB 18:55 → NEDA 04-27 03:41 → H250 04-27 04:10
PROVIDERS: ADMIT Psychiatry & Neurology Psychiatry; ATTEND Psychiatry & Neurology Psychiatry
DX: F20.0 Paranoid schizophrenia (principal); Z91.19 Patient's noncompliance with other medical treatment and regimen; E03.9 Hypothyroidism, unspecified; K59.00 Constipation, unspecified; D72.829 Elevated white blood cell count, unspecified
CPT/HCPCS: 71045; 80048; 80053; 80061; 80164; 80307; 81001; 83036; 84439; 84443; 85025; 96372; J1200; J2060; J3486; Q0163

== ENCOUNTER 2017-05-30 21:19 | Emergency (ER) | payer MEDICARE, OTHER ==
[~2017-05-30] VITALS: Ht 160 cm; Wt 70.0 kg
[~2017-05-30 21:19] MED LIST changes: +ASPI81CH7 CHEW; -DEPA500T3 PO; -DIPH50 PO; -DIVA250T PO; +DIVA500T3 PO; +GEOD60CA PO; -LEVO.15 PO; +LEVO150T7 PO; -LORA-474 PO; +MAGN250T11 PO; -RISP1 PO; +SERO400T PO; -TOLT4 PO; +TRAZ100T10 PO; +VITA1000 PO; -ZOLP10TA3 PO
[2017-05-30 21:28] VITALS: BP 158/72; PULSE 82; RESP 20; TEMP 98; O2SAT 97
[2017-05-30] MEDS ORDERED: SODIUM CHLORIDE 0.9% FLUSH 10 ML FLUSH IV FLUSH PRN (21:45)
[2017-05-30] MEDS ORDERED: LORazepam 2 MG/ML VIAL IV PUSH ONE (21:45)
[2017-05-30 21:52] VITALS: O2SAT 98
--- NOTE | 2017-05-30 22:18 | RADRPT ---
EXAM DATE/TIME: 05/30/2017 21:53 [facility] COMPARISON: CT BRAIN W/O CONTRAST, March 14, 2015, 13:47. INDICATIONS : Altered mental status. RADIATION DOSE: 56.34 CTDIvol (mGy) MEDICAL HISTORY : Seizures. Diabetes mellitus type 2. Carcinoma, breast. SURGICAL HISTORY : Tubal ligation. Mastectomy, bilateral. ENCOUNTER: Initial ACUITY: 1 day PAIN SCALE: 1/10 LOCATION: cranial TECHNIQUE: Multiple contiguous axial images were obtained of the head. Using automated exposure control and adj ustment of the mA and/or kV according to patient size, radiation dose was kept as low as reasonably a chievable to obtain optimal diagnostic quality images. DICOM format image data is available electro nically for review and comparison. FINDINGS: CEREBRUM: The ventricles are normal for age. No evidence of midline shift, mass lesion, hemorrhage or acute in farction. No extra-axial fluid collections are seen. POSTERIOR FOSSA: The cerebellum and brainstem are intact. The 4th ventricle is midline. The cerebellopontine angle i s unremarkable. EXTRACRANIAL: The visualized portion of the orbits is intact. SKULL: The calvaria is intact. No evidence of skull fracture. CONCLUSION: No acute disease. Seth Joseph MD on May 30, 2017 at 22:15 Board Certified Radiologist. This report was verified electronically.
[2017-05-30 22:20] LABS: AUTOMATED NEUTROPHIL # 8.1 TH/MM3 (1.8-7.7); BASOPHIL # 0.1 TH/MM3 (0-0.2); BASOPHIL % 0.9 % (0.0-2.0); EOSINOPHIL % 0.3 % (0.0-4.0); HEMATOCRIT 37.7 % (35.0-46.0); HEMOGLOBIN 12.7 GM/DL (11.6-15.3); LYMPH % 13.5 % (9.0-44.0); LYMPHOCYTE # 1.4 TH/MM3 (1.0-4.8); MEAN CELL VOLUME 89.8 FL (80.0-100.0); MEAN CORPUSCULAR HEMOGLOBIN 30.2 PG (27.0-34.0); MEAN CORPUSCULAR HGB CONC 33.7 % (32.0-36.0); MONO % 9.1 % (0.0-8.0); NEUT % 76.2 % (16.0-70.0); PLATELET COUNT 257 TH/MM3 (150-450); RED CELL DISTRIBUTION WIDTH 16.7 % (11.6-17.2); WHITE BLOOD COUNT 10.6 TH/MM3 (4.0-11.0)
[2017-05-30 22:39] LABS: BICARBONATE 25.5 MEQ/L (21.0-32.0); CALCIUM 9.2 MG/DL (8.5-10.1)
--- NOTE | 2017-05-30 23:30 | PD ---
HPI . Altered mental status Chief Complaint: Altered Mental Status Time Seen by Provider: 21:28 Travel History International Travel<30 days: No Contact w/Intl Traveler<30days: No Traveled to known affect area: No History of Present Illness HPI This patient suffers from both mental illness and a seizure disorder. She presented to us by EVAC. History from EVAC is that she has been noncompliant with her medications. Her son heard a crash and went into the other room and found her unresponsive. EVAC reports that her level of consciousness has slowly improved to normal. The patient denies any injuries. SEVERITY: Mild DURATION: Just a few minutes TIMING: Just prior to arrival CONTEXT: History of both mental illness and seizure disorder MODIFYING FACTORS: Noncompliant with medications PFSH Past Medical History Bipolar Disorder: Yes Depression: Yes Cancer: Yes (double mesectomy obtained from records) Cardiovascular Problems: Yes (Low blood pressure obtained from records) Diabetes: No Diminished Hearing: No Genitourinary: No Headaches: Yes Neurologic: Yes (THIROID PROBLEMS) Psychiatric: Yes Reproductive: No Respiratory: No Seizures: Yes (Two in past obtained from records) Tetanus Vaccination: Unknown Influenza Vaccination: No Tubal Ligation: Yes Past Surgical History Other Surgery: Yes Social History Alcohol Use: No Tobacco Use: Yes (pack a cig a day ) Substance Use: No Allergies-Medications (Allergen,Severity, Reaction): Coded Allergies: chlorpromazine (Unverified Allergy, Severe, Seizures, 05/30/17) doxycycline (Unverified Allergy, Severe, Seizures, 05/30/17) minocycline (Unverified Allergy, Severe, Seizures, 05/30/17) tigecycline (Unverified Allergy, Severe, Seizures, 05/30/17) Reported Meds & Prescriptions Reported Meds & Active Scripts Active Geodon (Ziprasidone) 60 Mg Cap 60 Mg PO BIDPC Seroquel (Quetiapine Fumarate) 400 Mg Tab 400 Mg PO HS Levothyroxine (Levothyroxine Sodium) 150 Mcg Tab 150 Mcg PO DAILY@0600 Divalproex ER (Divalproex Sodium) 500 Mg Tab 500 Mg PO BID Trazodone (Trazodone HCl) 100 Mg Tablet 100 Mg PO HS Aspirin Children's (Aspirin) 81 Mg Chew 81 Mg CHEW DAILY Escitalopram (Escitalopram Oxalate) 20 Mg Tab 20 Mg PO DAILY Review of Systems Except as stated in HPI: all other systems reviewed are Neg Physical Exam Narrative GENERAL: Currently awake and alert and in no acute distress. SKIN: warm/dry. HEAD: Normocephalic. Atraumatic. EYES: Pupils equal and round. No scleral icterus. No injection or drainage. ENT: No nasal bleeding or discharge. Mucous membranes pink and moist. She does have a bruise on the left side of her tongue. NECK: Trachea midline. Full range of motion without pain.. Nontender. CARDIOVASCULAR: Regular rate and rhythm. Heart sounds normal. RESPIRATORY: No accessory muscle use. Clear to auscultation. Breath sounds equal bilaterally. MUSCULOSKELETAL: No obvious deformities. NEUROLOGICAL: Awake and alert. No obvious cranial nerve deficits. Motor grossly within normal limits. Normal speech. PSYCHIATRIC: Appropriate mood and affect; insight and judgment normal. Data Data Last Documented VS Vital Signs Date Time Temp Pulse Resp B/P (MAP) Pulse Ox O2 Delivery O2 Flow Rate FiO2 05/30/17 21:52 98 Room Air 05/30/17 21:28 98.0 82 20 Orders Orders Basic Metabolic Panel (Bmp) (05/30/17 21:39) Complete Blood Count With Diff (05/30/17 21:39) Ct Brain W/O Iv Contrast(Rout) (05/30/17 21:39) Blood Glucose (05/30/17 21:39) Ecg Monitoring (05/30/17 21:39) Iv Access Insert/Monitor (05/30/17 21:39) Oximetry (05/30/17 21:39) Sodium Chloride 0.9% Flush (Ns Flush) (05/30/17 21:45) Lorazepam Inj (Ativan Inj) (05/30/17 21:45) Psych Screen (05/30/17 22:47) Labs Laboratory Tests Test 05/30/17 21:53 White Blood Count 10.6 TH/MM3 Red Blood Count 4.20 MIL/MM3 Hemoglobin 12.7 GM/DL Hematocrit 37.7 % Mean Corpuscular Volume 89.8 FL Mean Corpuscular Hemoglobin 30.2 PG Mean Corpuscular Hemoglobin Concent 33.7 % Red Cell Distribution Width 16.7 % Platelet Count 257 TH/MM3 Mean Platelet Volume 8.0 FL Neutrophils (%) (Auto) 76.2 % Lymphocytes (%) (Auto) 13.5 % Monocytes (%) (Auto) 9.1 % Eosinophils (%) (Auto) 0.3 % Basophils (%) (Auto) 0.9 % Neutrophils # (Auto) 8.1 TH/MM3 Lymphocytes # (Auto) 1.4 TH/MM3 Monocytes # (Auto) 1.0 TH/MM3 Eosinophils # (Auto) 0.0 TH/MM3 Basophils # (Auto) 0.1 TH/MM3 CBC Comment DIFF FINAL Differential Comment Blood Urea Nitrogen 37 MG/DL Creatinine 1.00 MG/DL Random Glucose 125 MG/DL Calcium Level 9.2 MG/DL Sodium Level 135 MEQ/L Potassium Level 3.9 MEQ/L Chloride Level 101 MEQ/L Carbon Dioxide Level 25.5 MEQ/L Anion Gap 9 MEQ/L Estimat Glomerular Filtration Rate 56 ML/MIN MDM Medical Decision Making Medical Screen Exam Complete: Yes Emergency Medical Condition: Yes Differential Diagnosis My differential diagnosis of syncope includes but is not limited to cardiac arrhythmia, hypovolemia, anemia, neurological catastrophe, vasovagal response Narrative Course This patient presents to us after apparently falling at home and then being found unresponsive. She either fell and hit her head or had a seizure disorder causing the fall. A CT of her head was done. Routine labs were also done. CBC & BMP Diagram 05/30/17 21:53 Calcium Level 9.[address] 05/30/172138 Signed Impressions: Service Date/Time: Tuesday, May 30, 2017 21:53 - CONCLUSION: No acute disease. Seth Joseph MD The patient has remained lucid here. The patient now states that she would like to see psychiatry. She believes that her medications need to be adjusted. She is medically clear for psychiatric evaluation. Diagnosis Primary Impression: Seizure Additional Impression: Medical clearance for psychiatric admission Condition: Stable Jocelyn Kong MD May 30, 2017 23:30
[2017-05-31] MEDS ORDERED: ACETAMINOPHEN 325 MG TAB PO ONE
[2017-05-31 02:25] VITALS: BP 137/78; PULSE 78; RESP 18; O2SAT 99
[2017-05-31] MEDS ORDERED: TRAZ100T10 PO (03:04)
[2017-05-31] MEDS ORDERED: DIVA500T3 PO (03:04)
[2017-05-31] MEDS ORDERED: ESCI20TA PO (03:04)
[2017-05-31] MEDS ORDERED: SERO400T PO (03:04)
[2017-05-31] MEDS ORDERED: GEOD60CA PO (03:04)
== END 2017-05-31 07:00 | disposition home or self-care (01) ==
LOC: NEPE 21:19 → NEPD 05-31 07:00
DX: G40.909 Epilepsy, unspecified, not intractable, without status epilepticus (principal); F17.210 Nicotine dependence, cigarettes, uncomplicated; F41.8 Other specified anxiety disorders; I95.9 Hypotension, unspecified; Z91.14 Patient's other noncompliance with medication regimen
CPT/HCPCS: 70450; 80048; 80164; 85025; 96374; 99284; J2060